=== PATIENT | female | born 1950 | race Caucasian/White ===

== ENCOUNTER 2016-11-13 07:13 | Day surgery (SDC) | payer MEDICARE, OTHER ==
[~2016-11-13] VITALS: Ht 160 cm; Wt 104.3 kg
[~2016-11-13 07:13] MED LIST: ATEN25TA PO; ATOR20TA PO; CITA40TA13 PO; GABA-504 PO; HYDR-3740 PO; LISI10TA PO; Lactated Ringer's 1,000 ML IV ONE; METO10TA3 PO; MIRT30TA6 PO; NALO25TA PO; NPH,100V10 SUBQ; OXYB5TAB10 PO; RANI-426 PO; SOMA350 PO
[2016-11-13] MEDS ORDERED: Propofol 10,000 mCg/mL 20 mL Inj ONE ×2 (07:14)
[2016-11-13] MEDS ORDERED: Lidocaine PF 1% 30 mL Inj ONE ×2 (07:14)
[2016-11-13] MEDS ORDERED: Lactated Ringer's 1,000 ML IV SCH (07:47)
--- NOTE | 2016-11-13 07:47 | PCM.HPANE ---
Patient Data Date of Service: Nov 13, 2016 Surgeon Admitting Provider: Attending Provider:Ulises Dewitt MD Primary Care Physician:Crystal Todd DO Other Provider:Jam Fall Anesthesia Reason for Visit Constipation Ht/WT & BMI Body Mass Index Allergies Coded Allergies: TAPE (Verified Allergy, Severe, BLISTERING/PEELING PAPER OK, 03/02/16) clindamycin (Verified Allergy, Severe, SEVERE HIVES, 03/02/16) droperidol (Verified Allergy, Severe, AGITATION, 03/02/16) iodine (Verified Allergy, Severe, HIVES (CONTRAST DYE) EXTERNAL OK, 03/02) latex (Verified Allergy, Severe, BURNING/INFLAMMATION, 03/02/16) meperidine (Verified Allergy, Severe, N&V, 03/02/16) morphine (Verified Allergy, Severe, ITCHING, 03/02/16) Sulfa (Sulfonamide Antibiotics) (Verified Allergy, Unknown, Rash, 03/02/16) Past Anesthesia History Anesthesia History: Positive for:: Anesthesia Reactions (UNABLE TO BREATHE AFTER & NEEDED REINTUBATION-PT AWAKE) Diabetes History Hx Diabetes?: Yes (blood sugar at home 179, took 15units NPH at 0530) MRSA MRSA: No Medications Reported Medications Ranitidine 75 Mg Yveqhy39 Mg PO BID 11/12/16 Oxybutynin Chloride 5 Mg Lpmxqe23 Mg PO DAILY Ref 0 11/12/16 NPH, Human Insulin Isophane (Novolin-N U100 Insulin Vial)100 Unit/1 Ml Vial55 Unit SUBQ BID #1 VIAL Ref 0 11/12/16 Naloxegol Oxalate (Movantik)25 Mg Qvqeva48 Mg PO DAILY 11/12/16 Mirtazapine 30 Mg Orihtb67 Mg PO HS Ref 0 11/12/16 Metoclopramide 10 Mg Fidskc81 Mg PO QID PRN For Nausea Ref 0 11/12/16 Lisinopril 10 Mg Tjyfrd67 Mg PO DAILY 30 Days Ref 0 11/12/16 Hydrocodone-Acetaminophen 10-325 mg 1 Each Tablet1 Tablet PO Q6H PRN For Pain Ref 0 11/12/16 Gabapentin 400 Mg Uxbwcxf363 Mg PO TID Ref 0 11/12/16 Citalopram 40 Mg Yfyrja61 Mg PO DAILY 30 Days Ref 0 11/12/16 Carisoprodol 350 Mg Xdcnck463 Mg PO TID PRN UNKNOWN 11/12/16 Atorvastatin (Lipitor)20 Mg Mvlvho45 Mg PO DAILY Ref 0 11/12/16 Atenolol 25 Mg Moezyx42 Mg PO DAILY #30 TABLET Ref 0 11/12/16 Discontinued Reported Medications Lactobacillus Combination No.4 (Probiotic)1 Each Capsule1 Each PO 03/02/16 Oxycodone (Roxicodone)15 Mg Abzxvo87 Mg PO Q6H PRN For Pain Ref 0 03/02/16 Mirtazapine-Expunged Drug, Do Not Renew! (Remeron-Expunged Drug, Do Not Renew!) 45 Mg Bsoaxj45 Mg PO HS 10/02/11 Citalopram-Expunged Drug, Do Not Renew! 40 Mg Uvudmb56 Mg PO DAILY 10/02/11 Simvastatin-Expunged Drug, Choose New Med! 40 Mg Qbyyfa04 Mg PO DAILY 10/02/11 Omeprazole-Expunged Drug, Do Not Renew! 40 Mg Capsule.dr40 Mg PO DAILY 2 caps 10/02/11 Lorazepam-Expunged Drug, Do Not Renew! 1 Mg Tab1 Mg PO Q6 PRN 10/02/11 Hydrocod/APAP-Expunged, Do Not Renew! (Hydrocod/APAP 7.5/300-Expunged, Do Not Renew!)1 Each Tablet1-2 Each PO Q6 10/02/11 Atenolol-Expunged Drug, Do Not Renew! 25 Mg Cgjnjh76 Mg PO BID 10/02/11 Insulin Lispro-Expunged Drug, Do Not Renew! (Humalog-Expunged Drug, Do Not Renew !)100 U/Ml Vial Sq SLIDING SCALE 10/02/11 INSULIN NPH-Expunged Drug, Do Not Renew! (Humulin N-Expunged Drug, Do Not Renew! )100 Unit/Ml Unit50 Unit SUBQ BID 10/02/11 Discontinued Scripts Polyethylene Glycol 3350 (Miralax)17 Gm Powd.pack17 Gm PO DAILY 14 Days Prov:Rush Ward 03/02/16 History History of ENT Problems?: Yes HEENT History: Positive for:: Dysphagia (swallowing problems) Sinus Problem TMJ Hx of Heart Problems?: Yes Cardiovascular History: Positive for:: Hypertension (HYPERLIPIDEMIA) Hx of Respiratory Problem?: Yes Respiratory History: Positive for:: Dyspnea Hx Neurologic Problems?: Yes Neurological History: Positive for:: Headaches Hx of GI Problems?: Yes Gastrointestinal History: Positive for:: Diverticulitis (diverticulosis) Gastroesphageal Reflux Heartburn Hiatal Hernia Hx of Problems?: Yes Genitourinary History: Positive for:: Kidney Stones Female Hx: Denies:: Currently Problems with Breasts? (S/P BREAST REDUCTION) Skin History: Denies:: History Skin Disorders? Hx Musculoskeletal Problems?: Yes Musculoskeletal History: Positive for:: Back Injury (and neck) Hx of Psycho/Social Problems?: Yes Psycho Social History: Positive for:: Anxiety Hx Depression Hx Surgeries?: Yes (Exp lap, bladder sling, breast reduction,hyster,Rt kidney stone,CTR,BTL) Hx Any Other Health Problems?: Yes Other History: Denies:: Cancer Endocrine Disease Hospitalization Thyroid Disease History Blood Transfusions: Positive for:: Blood Transfusions Denies:: Blood Transfuse Reaction Hx Diabetes: Yes (blood sugar at home 179, took 15units NPH at 0530) Hx Alcohol Use: NoHx Substance Use: NoHave You Smoked inLast 12 mo: No Stop/Bang Treated for Sleep Apnea?: No Do You Have a CPAP Machine?: No S-Snoring: Do You Snore Loudly: Yes T-Tired: feel tired, fatigued: Yes O-Obsered: Observed not breath: Yes P-Blood Pressure: treated: Yes B- Body Mass Index > 35 kg/m2: Yes A- Age over 50: Yes N- Neck Large Circumference: Yes AURA Risk Assessment: High Risk, =/>3 Yes Risk Assessment Category Category 1A: Patient has history of documented sleep apnea, and HAS NOT received any narcotic, sedative or anesthesia administration during this stay. Category 1B: Patient has history of documented sleep apnea, and HAS received any narcotic , sedative or anesthesia administration during this stay Category 2: Patient has SUSPECTED Obstructive Sleep Apnea, and HAS received any narcotic , sedative or anesthesia administration during this stay. Category 3: Patient has SUSPECTED Obstructive Sleep Apnea and HAS NOT received narcotic, sedative or anesthesia administration during this stay. Category 4: Outpatient in Procedural Areas with known sleep apnea or who screen positive for High Risk via the STOP/BANG questionnaire. Exam Exam HEENT/AIRWAY: MP 3, Neck Movement (Thick), Mouth Opening (Wide) Lungs: Clear to Auscultation, Normal Air Movement Heart: Regular Rate/Rhythm, Normal S1, Normal S2 Plan Impression Patient chart reviewed, patient interviewed and anesthestic plan with risks, benefits, and alternatives discussed, and informed consent obtained. NPO Status: > 8 hours ASA Physical Status: ASA3 Severe Disease Anesthetic Plan: MAC Bene/Risks/Altern/Consents: Yes HP Complete Prior to Induction: Yes Carlo Le MD Nov 13, 2016 07:47
[2016-11-13] MEDS ORDERED: Ondansetron 2 mg/mL 2 mL Inj IVPUSH PRN (07:50)
[2016-11-13] MEDS ORDERED: MetoCLOpramide 5 mg/mL 2 mL Inj IVPUSH PRN (07:50)
[2016-11-13] MEDS ORDERED: Atropine 0.4 mg/mL Inj IVPUSH PRN (07:50)
[2016-11-13 08:00] VITALS: BP 150/85; PULSE 110; RESP 14; O2SAT 96
[2016-11-13] MEDS ORDERED: INSU100V27 SQ (08:10)
[2016-11-13] MEDS ORDERED: NPH,100V10 SUBQ (08:10)
[2016-11-13 08:46] VITALS: BP 121/56; PULSE 94; RESP 14; O2SAT 95
--- NOTE | 2016-11-13 08:48 | PCM.ENDCOL ---
Colonoscopy Date of Service: Nov 13, 2016 Physician Ulises Dewitt MD Pre Procedure Diagnosis: Screening and constipation and personal history of polyps Post Procedure Dx & Findings: Polyp Fair Prep hemorrhoids Procedure Colonoscopy PROCEDURE IN DETAIL: Prep fair Withdrawal time 21 minutes After unremarkable rectal examination the Olympus video colonoscope was inserted patient's anal canal and was advanced to cecum. Landmarks were identified including the ileocecal valve and appendiceal orifice. Scope was withdrawn systematically. Visualized colonic mucosa showed healthy shiny mucosa with normal healthy-appearing vasculature. I spent quite a bit of time cleaning the colon. Significant amount of seeds were noted and plugged the scope on several occasions. In the ascending colon there was a 3 mm polyp which was removed completely using cold snare. In the transverse colon there was a 2 mm polyp which was removed completely using cold snare. In the sigmoid colon there was a 1 cm flat polyp which was removed completely using hot snare. In the rectum retroflexion was done which showed hemorrhoids. Anal canal was inspected carefully on the way out and hemorrhoids noted. Impression Polyps 3 status post complete removal. Largest one 1 cm Fair prep Hemorrhoids Recommendation Repeat colonoscopy 2 years with low residual diet for 2 weeks Presedation Assessment Risks and Benefits Informed consent was obtained from the patient after all risks and benefits including but not limited to drug reaction, infection, pain, bleeding, perforation, as well as alternatives were discussed. Patient monitoring Continuous pulse oximetry, cardiac monitoring, blood pressure monitoring, IV access, and oxygen at 2L per nasal cannula. Complications There were no periprocedural complications identified. Post Procedure Plan Post Procedure Recommendations 1. Restrict activities today. 2. Resume normal activities in the morning. 3. Resume medications. 4. Patient informed of normal post procedure side effects as bloating, drowsiness, blood streaking in the stool. 5. average risk CRCS. If colon polyps come back as: -Hyperplastic- can repeat colonoscopy in 10 years -Tubular adenoma- repeat colonoscopy in 5 years -Tubulovillous/villous adenoma- repeat colonoscopy in 3 years -If any dysplasia- return to clinic as soon as possible 6. Please don't hesitate to call me with any questions. Ulises Dewitt MD Nov 13, 2016 08:47
--- NOTE | 2016-11-13 08:53 | PCM.ANEP1 ---
Post Anesthesia Phase 1 PACU Phase 1 Assessment Date of Service: Nov 13, 2016 Vital Signs Vital Signs Date Time Temp Pulse Resp B/P Pulse Ox O2 Delivery O2 Flow Rate FiO2 11/13/16 08:46 36 94 14 121/56 95 Room Air 11/13/16 08:00 110 14 150/85 96 Room Air Anesthetic Administered: MAC Level of Alertness: Awake, talking BARRETO's with Equal Strength: Yes Pain: No Nausea or Vomiting: No Oxygen Delivery: Room Air Lungs: Normal Air Movement Carlo Le MD Nov 13, 2016 08:53
[2016-11-13 08:56] VITALS: BP 121/56; PULSE 87; RESP 16; O2SAT 97
[2016-11-13 09:06] VITALS: BP 121/73; PULSE 95; RESP 16; O2SAT 97
--- NOTE | 2016-11-13 09:37 | PCM.ANEP2 ---
Post Anesthesia Evaluation ASA/CMS Post Anesthesia Date of Service: Nov 13, 2016 VS in Patient's Normal Range?: Yes Resp Stable; Airway Patent?: Yes CV Function & Hydration Stable: Yes Mental Status Recovered?: Yes Pain control Satisfactory?: Yes N/V Control Satisfactory?: Yes Carlo Le MD Nov 13, 2016 09:37
--- NOTE | 2016-11-14 15:49 | PATH ---
SURGICAL PATHOLOGY Attending Physician:Ulises Dewitt M.D. CASE STATUS: Signed Out PATIENT NAME: MESSI STARK PID: [id number] : 1950 DATE COLLECTED:11/13/2016 18:12 SPECIMEN: 1: Colon, Biopsy 2: Colon, Biopsy 3: Colon, Biopsy CLINICAL HISTORY: 1). ASCENDING COLON POLYP X1 2). TRANSVERSE COLON POLYP X1 3). SIGMOID COLON POLYP X1 FINAL DIAGNOSIS: 1.ASCENDING COLON POLYP: TUBULAR ADENOMA. 2.TRANSVERSE COLON POLYP: TUBULAR ADENOMA. 3.SIGMOID COLON POLYP: HYPERPLASTIC POLYP. ICD10 CODE D12.2 GROSS DESCRIPTION: The specimen is received in three formalin filled containers labeled with the patient's name. 1). The specimen is sublabeled "ascending colon polyp x1" and consists of a 0.4 x 0.3 x 0.3 CM portion of tissue which is entirely submitted in cassette 1A. 2). The specimen is sublabeled "transverse colon polyp x1" and consists of a 0.3 x 0.2 x 0.2 CM portion of tissue which is entirely submitted in cassette 2A. 3). The specimen is sublabeled "sigmoid colon polyp x1" and consists of a 0.6 x 0.5 x 0.4 CM portion of tissue which is entirely submitted in cassette 3A. 11/13/2016 DAC MICRO DESCRIPTION: See diagnosis. ICD-9 CODES: CPT CODES: 1: 86187 2: 68838 3: 57373 Electronically Signed Out Michele Galaviz MD [facility] [address], [place] [address] Technical component performed at [facility], [address] [place] [address] Ave[address], [place], [address]
== END 2016-11-13 23:59 | disposition home or self-care (01) ==
LOC: END 07:13
PROVIDERS: ATTEND Internal Medicine
DX: Z12.11 Encounter for screening for malignant neoplasm of colon (principal); D12.2 Benign neoplasm of ascending colon; D12.3 Benign neoplasm of transverse colon; D12.5 Benign neoplasm of sigmoid colon; K64.8 Other hemorrhoids; I10 Essential (primary) hypertension; E78.5 Hyperlipidemia, unspecified; E11.42 Type 2 diabetes mellitus with diabetic polyneuropathy; G89.4 Chronic pain syndrome; K59.09 Other constipation; Z79.4 Long term (current) use of insulin; Z98.84 Bariatric surgery status
CPT/HCPCS: 45385; J7120

== ENCOUNTER 2016-12-06 12:52 | Inpatient (IN) | payer MEDICARE, OTHER ==
[~2016-12-06] VITALS: Ht 160 cm; Wt 112.8 kg
[~2016-12-06 12:52] MED LIST changes: +INSU100V27 SQ; -Lactated Ringer's 1,000 ML IV ONE; -METO10TA3 PO; -NALO25TA PO; -RANI-426 PO
[2016-12-06 13:18] VITALS: BP 149/78; PULSE 101; RESP 13; O2SAT 97
[2016-12-06] MEDS ORDERED: Ondansetron 2 mg/mL 2 mL Inj IVPUSH ONE (13:35)
[2016-12-06] MEDS ORDERED: 0.9% Sodium Chloride 1,000 ML IV ONE (13:35)
--- NOTE | 2016-12-06 13:47 | ED.REPORT ---
HPI-GI Bleed Date of Service Dec 06, 2016 ED Provider: Bill Garduno PA-C Essence is a 66-year-old female with a history of DM, hyperlipidemia who presents with a chief complaint of bloody diarrhea. She reports 2 episodes of watery diarrhea last night, associated with sweating and a sensation of presyncope. Since then she has had many episodes of small volume bright red blood per rectum. She also reports global abdominal "pressure" and "dark beige " urine. She states that she typically has gross hematuria on urinalysis due to history of kidney surgery. She has not had symptoms like this previously. Admits history of C. difficile colitis as well as a remote history of gastric bypass surgery and intussusception requiring surgery.. Denies recent antibiotic use, travel, unusual food, fever, vomiting, history of VT, CVA, TIA. Denies history of inflammatory bowel disease or cancer. Denies rectal pain or itching. She reports a colonoscopy 3 weeks ago and removal of 3 polyps. She was told it was a poor quality study due to retained fecal matter. She admits a history of low back pain with right leg radiculopathy that has been worsening over the last several weeks. Review of colonoscopy results indicate a fair quality study, 3 polyps removed largest one being 1 cm. Hemorrhoids are noted in the rectum, but not diverticula. Nursing Notes Stated Complaint: DIARRHEA Chief Complaint: Female Abdominal Pain Nursing Notes Reviewed: Yes Allergies: Coded Allergies: TAPE (Verified Allergy, Severe, BLISTERING/PEELING PAPER OK, 12/06/16) clindamycin (Verified Allergy, Severe, SEVERE HIVES, 12/06/16) droperidol (Verified Allergy, Severe, AGITATION, 12/06/16) iodine (Verified Allergy, Severe, HIVES (CONTRAST DYE) EXTERNAL OK, 12/06) latex (Verified Allergy, Severe, BURNING/INFLAMMATION, 12/06/16) meperidine (Verified Allergy, Severe, N&V, 12/06/16) morphine (Verified Allergy, Severe, ITCHING, 12/06/16) Sulfa (Sulfonamide Antibiotics) (Verified Allergy, Unknown, Rash, 12/06/16) metformin (Verified Adverse Reaction, Unknown, ABD CRAMPS, 12/06/16) Scheduled Atenolol (Atenolol) 25 Mg Tablet 50 MG PO DAILY Atorvastatin (Lipitor) 20 Mg Tablet 20 MG PO DAILY Citalopram (Citalopram) 40 Mg Tablet 40 MG PO DAILY Gabapentin (Gabapentin) 400 Mg Capsule 400 MG PO TID Insulin Regular, Human (Novolin-R U100 Insulin Vial) 100 Unit/1 Ml Vial 0 SQ ONCE Lisinopril (Lisinopril) 10 Mg Tablet 10 MG PO DAILY Mirtazapine (Mirtazapine) 30 Mg Tablet 30 MG PO HS NPH, Human Insulin Isophane (Novolin-N U100 Insulin Vial) 100 Unit/1 Ml Vial 100 UNIT SUBQ ONCE Oxybutynin Chloride (Oxybutynin Chloride) 5 Mg Tablet 10 MG PO DAILY Scheduled PRN Carisoprodol (Carisoprodol) 350 Mg Tablet 350 MG PO TID PRN PRN UNKNOWN Hydrocodone-Acetaminophen 10-325 mg (Hydrocodone-Acetaminophen 10-325 mg) 1 Each Tablet 1 TABLET PO Q6H PRN PRN For Pain General Time Seen by Provider: 13:23 Chief Complaint Chief Complaint: Stool bright red blood Past Medical History Past Medical History Reports: Diabetes mellitus, Hyperlipidemia Past Surgical History intusseption repair Reports: Hysterectomy Smoking History Former Smoker Review of Systems Review of Systems Note: Negative unless stated otherwise in history of present illness Physical Exam General: Well appearing, well developed, obese, in moderate distress. Appears quite uncomfortable lying on the gurney. Head: Atraumatic, normocephalic. Eyes: No scleral icterus or injection. No discharge. Vision grossly intact. ENT: Voice clear, hearing grossly intact. Respiratory: Regular rate and rhythm. Breath sounds present, clear to auscultation and equal bilaterally. No respiratory distress. No increased work of breathing, speaks in complete sentences. Cardiovascular: Regular rate and rhythm, without murmur, gallop or rub. No pedal edema. Gastrointestinal: Abdomen flat and non-tender without guarding or rebound. Bowel sounds normoactive. Rectum: Small nonthrombosed external hemorrhoid at anterior aspect of anus. Sensation intact. Normal tone. No masses or tenderness in rectum. Small amount of bright red blood extracted. Guaiac positive. Skin: Warm and dry. Back: Normal to inspection. Neurological: Normal gait. Grossly nonfocal. Psychological: Alert and oriented. Speech appropriate, linear and logical. Behavior appropriate. Initial Vital Signs Vital Signs (First) Date Time Temp Pulse Resp B/P Pulse Ox O2 Delivery O2 Flow Rate FiO2 12/06/16 13:18 37.5 101 13 149/78 97 Room Air Initial VS: Vital signs abnormal (hypertensive) Interpretation & Diagnostics Lab Results Interpretation Result Diagram: 12/06/16 1405 12/06/16 1405 Test 12/06/16 14:00 12/06/16 14:05 Urine Color Yellow (YELLOW) Urine Appearance Clear (CLEAR,HAZY) Urine pH 5.5 (5.0-8.0) Urine Specific [place] 1.015 (1.003-1.035) Urine Protein Negativemg/dL (NEG,TRACE) Urine Glucose (UA) Negativemg/dL (NEGATIVE) Urine Ketones 40mg/dL (NEGATIVE) Urine Occult Blood Large (NEGATIVE) Urine Nitrite Positive (NEGATIVE) Urine Bilirubin Negative (NEGATIVE) Urine Urobilinogen Normalmg/dL (NORMAL) Urine Leukocyte Esterase Small (NEGATIVE) Urine RBC 11-50/hpf (0-2) Urine WBC 6-10/hpf (0-5) Urine Epithelial Cells Moderate/hpf (NONE-MOD) Urine Crystals None seen (NONE SEEN) Urine Bacteria Many/hpf (NONE-FEW) Urine Hyaline Casts None/lpf (NONE) Urine Granular Casts None seen (NONE SEEN) Urine Waxy Casts None seen (NONE SEEN) Urine Red Blood Cell Casts None seen (NONE SEEN) Urine White Blood Cell Casts None seen (NONE SEEN) Urine Mucus None seen (None Seen) Urine Trichomonas None seen (NONE SEEN) Urine Yeast None (NONE SEEN) Urinalysis Comment None Urine Culture Reflexed Indicated White Blood Count 14.0th/mm3 (3.8-10.1) Red Blood Count 5.23mil/mm3 (3.90-5.20) Hemoglobin 15.7g/dL (12.0-15.6) Hematocrit 46.9% (35.0-46.0) Mean Corpuscular Volume 89.7fL (81-100) Mean Corpuscular Hemoglobin 30.0pg (27.0-35.0) Mean Corpuscular Hemoglobin Concent 33.5% (32.0-37.0) Red Cell Distribution Width 13.0% (12.3-15.4) Platelet Count 176bil/L (150-400) Neutrophils (%) (Auto) 83.3% (40-74) Lymphocytes (%) (Auto) 12.0% (14-46) Monocytes (%) (Auto) 4.1% (4-12) Eosinophils (%) (Auto) 0.4% (0-5) Basophils (%) (Auto) 0.1% (0-3) Prothrombin Time 10.7sec (8.1-12.5) Prothromb Time International Ratio 1.00ratio Activated Partial Thromboplast Time 24.8sec (22.8-33.0) Sodium Level 134mEq/L (134-144) Potassium Level 4.3mEq/L (3.5-5.2) Chloride Level 98mEq/L (97-108) Carbon Dioxide Level 17mmol/L (18-29) Blood Urea Nitrogen 12mg/dL (8-27) Creatinine 0.59mg/dL (0.57-1.00) Estimat Glomerular Filtration Rate 146mL/min (>59) Glucose Level 240mg/dL (60-99) Lactic Acid Level 1.7mmol/L (0.4-2.0) Calcium Level 9.2mg/dL (8.5-10.1) Total Bilirubin 0.9mg/dL (0.0-1.2) Aspartate Amino Transf (AST/SGOT) 18U/L (0-50) Alanine Aminotransferase (ALT/SGPT) 25U/L (0-32) Alkaline Phosphatase 186U/L (25-165) Total Protein 7.1g/dL (6.4-8.4) Albumin 3.7g/dL (3.4-5.0) Lipase 10U/L (13-60) Hold García Top Tube Received (Received) Ketones Positive (Negative) X-Ray Chest Interpretation Chest Xray Interpretation: PROCEDURE: X-RAY CHEST ONE VIEW, PORTABLE ([id number]) INDICATIONS: cough IMPRESSION: No acute cardiopulmonary findings. Interpretation / Wet Read by: Interpret - Radiologist CT Abd / Pelvis Interpretation PROCEDURE: CT ABDOMEN AND PELVIS WITHOUT CONTRAST ([id number]) IMPRESSION: 1. Descending and sigmoid colitis. Ischemic, infectious, and inflammatory etiologies could all be considered in the differential. No perforation or abscess. Re-Eval/Medical Decision Med Decision/Clinical Course 56-year-old female with a history of diabetes managed with insulin presents with a chief complaint of diarrhea, bright red blood per rectum, abdominal "pressure" and right leg radiculopathy. Describes 2 episodes of watery diarrhea last night as well as ongoing bouts of small volume bright red blood per rectum. Physical examination reveals a globally tender abdomen with some localization to the right lower quadrant. Rectal exam reveals a nonthrombosed external hemorrhoid, no masses or tenderness in the rectum but produces a small amount of bright red blood. Patient is hemodynamically stable. CBC reveals a mild leukocytosis with left shift at 14 as well as mild polycythemia with a hemoglobin of 15.7 and hematocrit of 46.9. CMP reveals slightly low carbon dioxide 17, elevated glucose at 240 and elevated alkaline phosphatase at 186. Lipase is low at 10. Positive ketones. PT normal at 10.7, INR normal at 1.00 and a PTT normal at 24.8 Urinalysis significant for large occult blood, positive urine nitrate, small leukocyte esterase , urine RBC 11-50, urine WBC 6-10, urine epithelial cells moderate, urine bacteria many. Sent for culture. Discussed the case with Dr. Otero, who met with and examined the patient. Ordered abdominal CT without contrast due to contrast allergy. CT reveals evidence of colitis. Dr. Otero advises 5 mg Flagyl IV, 500 mg of levofloxacin IV and will seek admission. Consultation : Referral / Consult Name: August Doherty MD Consulted With: Hospitalist Note: Dr. Otero discussed the case with the hospitalist who met with and examined the patient. Excepts admission. Discharge & Departure Impression: Primary Impression: Colitis Disposition: ADMITTED TO HOSPITAL Referrals: Crystal Todd DO (PCP) EDSupervising Provider for APC: Michele Otero MD Attending Statement I personally examined this patient and agree with above. copies to: Crystal Todd Seth PA-C Dec 06, 2016 13:47 Michele Otreo MD Dec 06, 2016 23:30
[2016-12-06] MEDS: HYDROmorphone 0.5 mg/0.5 mL iSecure Syringe IVPUSH PRN ×4 (14:16→16:01)
[2016-12-06 14:21] LABS: BASOPHILS % (AUTO) 0.1 % (0-3); EOSINOPHILS % (AUTO) 0.4 % (0-5); MONOCYTES % (AUTO) 4.1 % (4-12); Mean Corpuscular Volume 89.7 fL (81-100); NEUTROPHILS % (AUTO) 83.3 % (40-74); Platelet Count 176 bil/L (150-400)
[2016-12-06 14:55] LABS: APPEARANCE,URINE CLEAR (CLEAR,HAZY); COLOR,URINE YELLOW (YELLOW)
[2016-12-06 14:56] LABS: OCCULT BLOOD,URINE LARGE (NEGATIVE); PH,URINE 5.5 (5.0-8.0); UROBILINOGEN,URINE NORMAL (NORMAL)
[2016-12-06 15:00] VITALS: BP 133/39; PULSE 95; RESP 21; O2SAT 98
--- NOTE | 2016-12-06 16:18 | DRSVH ---
PROCEDURE: X-RAY CHEST ONE VIEW, PORTABLE ([id number]) INDICATIONS: cough TECHNIQUE: One view of the chest was acquired. COMPARISON: None. FINDINGS: Surgical changes and devices: None. Lungs and pleura: No pleural effusions or pneumothorax. Lungs are clear. Mediastinum: Mediastinal contours appear normal. Heart size is normal. Bones and chest wall: No suspicious bony lesions. Overlying soft tissues appear unremarkable. IMPRESSION: No acute cardiopulmonary findings. Dictated by: Bell Pagan M.D. on 12/06/2016 at 16:16 Approved by: Bell Pagan M.D. on 12/06/2016 at 16:17
--- NOTE | 2016-12-06 16:55 | DRSVH ---
PROCEDURE: CT ABDOMEN AND PELVIS WITHOUT CONTRAST ([id number]) INDICATIONS: rlq abd tenderness TECHNIQUE: After the administration of oral contrast, 5 mm thick sections acquired from the diaphragms to the sy mphysis. 5 mm coronal and sagittal reformats were performed. For radiation dose reduction, the foll owing was used: automated exposure control, adjustment of mA and/or kV according to patient size. COMPARISON: None. FINDINGS: Image quality: Excellent. ABDOMEN: Lung bases: Lung bases are clear. Heart size is normal. There is mild basilar atelectasis. No pleu ral effusion or pneumothorax. Solid organs: The liver is diffusely hypodense suggesting hepatic steatosis. The spleen demonstrates normal size. Gallbladder is unremarkable. Pancreas is normal in size. No adrenal nodules. Both ki dneys are normal in size, without hydronephrosis or nephrolithiasis. Peritoneum and bowel: The stomach and small bowel demonstrate normal caliber and wall thickness. Alyssa ent is likely status post right hemicolectomy. The ascending and transverse colon demonstrate normal caliber and wall thickness. There is circumferential wall thickening of the descending and sigmoid co fredy. There is mild pericolonic fat stranding. No definite colonic diverticular outpouchings to sugges t diverticulitis. No free fluid or pneumoperitoneum. Nodes and vessels: No retroperitoneal or mesenteric adenopathy by size criteria. Aorta and inferior vena cava are normal in size. Miscellaneous: No ventral hernias. PELVIS: Genitourinary: Bladder wall thickness is normal. The uterus is surgically absent. Miscellaneous: No inguinal hernias or adenopathy. Bones: No suspicious bony lesions. Severe degenerative change throughout the lumbar spine. No verteb ral body compression fractures. IMPRESSION: 1. Descending and sigmoid colitis. Ischemic, infectious, and inflammatory etiologies could all be con sidered in the differential. No perforation or abscess. This finding was discussed with Dr. Otero at 8:51 PM on 12/06/16. Dictated by: Bell Pagan M.D. on 12/06/2016 at 16:44 Approved by: Bell Pagan M.D. on 12/06/2016 at 16:53
[2016-12-06] MEDS ORDERED: metroNIDAZOLE Inj 500 MG in IV Premix 1 EACH IV ONE (17:30)
[2016-12-06] MEDS ORDERED: HYDROmorphone 0.5 mg/0.5 mL iSecure Syringe IVPUSH PRN (17:30)
[2016-12-06] MEDS ORDERED: levoFLOXacin Inj 500 MG in IV Premix 1 EACH IV ONE (17:30)
[2016-12-06 17:57] VITALS: BP 133/47; PULSE 100; RESP 20; O2SAT 97
[2016-12-06] MEDS ORDERED: Alum-Mag Hydrox-Simeth 30 mL Suspension PO PRN (18:15)
[2016-12-06] MEDS ORDERED: Polyethylene Glycol (PEG) 17 Gm Powder PO PRN (18:15)
[2016-12-06] MEDS ORDERED: Ondansetron 2 mg/mL 2 mL Inj IVPUSH PRN (18:15)
[2016-12-06] MEDS: metroNIDAZOLE Inj 500 MG in IV Premix 1 EACH IV SCH ×2 (18:15→23:10)
--- NOTE | 2016-12-06 18:16 | PCM.HPMED ---
Subjective Date of Service Dec 06, 2016 Primary Provider: Admitting Physician: August Doherty MD Primary Care Physician: Crystal Todd DO Attending Physician: August Doherty MD Admit Status: From the Emergency Department, Remote Telemetry Chief Complaint: Bloody Diarrhea/1 day Abdominal pain/1 day History of Present Illness: 66-year-old lady with past medical history of diabetes on insulin, hypertension , obesity, chronic low back pain, peripheral neuropathy presented to the emergency room due to bloody diarrhea of one day. She developed an episode of explosive nonbloody diarrhea last night at 10 pm which was followed by frequent small bloody diarrhea episodes. She also has diffuse abdominal pain, dull aching which is worse than her chronic pain. She has nausea but no vomiting. Denies fever. She has mild chronic abdominal and low back pain. She had underwent workup for chronic abdominal pain and constipation which is unrevealing except colon polyps. She had a follow-up colonoscopy 4 weeks ago which revealed only polyps. Denies history of diarrhea. Denies recent history of antibiotic use. Denies history of atrial fibrillation. She has history of gastric bypass surgery in the 70s for obesity which was complicated by intussusception requiring exploratory laparotomy. ED course: HR 105, BP 149/70, afebrile, saturation 97% on room air. WBC 14, sodium 134, bicarbonate 17, anion gap 19, urine ketones positive, pyuria, lactate 1.7, creatinine 0.59, glucose 240 CT abdomen shows descending colitis. Flagyl and Levaquin started. 2 L of normal saline given. Admission requested for colitis. Review of Systems: Comprehensive review of systems performed. Pertinent positives and negative included in history of present illness Allergies Coded Allergies: TAPE (Verified Allergy, Severe, BLISTERING/PEELING PAPER OK, 12/06/16) clindamycin (Verified Allergy, Severe, SEVERE HIVES, 12/06/16) droperidol (Verified Allergy, Severe, AGITATION, 12/06/16) iodine (Verified Allergy, Severe, HIVES (CONTRAST DYE) EXTERNAL OK, 12/06) latex (Verified Allergy, Severe, BURNING/INFLAMMATION, 12/06/16) meperidine (Verified Allergy, Severe, N&V, 12/06/16) morphine (Verified Allergy, Severe, ITCHING, 12/06/16) Sulfa (Sulfonamide Antibiotics) (Verified Allergy, Unknown, Rash, 12/06/16) metformin (Verified Adverse Reaction, Unknown, ABD CRAMPS, 12/06/16) Home Medications Atenolol 50 mg by mouth daily Atorvastatin 20 mg by mouth daily Citalopram 40 mg daily Gabapentin 800 mg by mouth 3 times a day Novolin R sliding scale Novolin N NPH insulin 55 units in the morning and 50 units at bedtime Lisinopril 10 mg daily Mirtazapine 30 mg by mouth at bedtime Oxybutynin 5 mg by mouth daily PMH Diabetes insulin-dependent, insulin resistance per patient Hyperlipidemia Chronic abdominal pain Chronic lowback pain due to lumbar disc disease Surgical History Gastric bypass and stenting 70s for obesity complicated by intussusception requiring exploratory laparotomy, residual Suspected gastroparesis Bladder repair Hysterectomy Bilateral tubal ligation breast reduction surgery Family History father at 92 due to old age Mother at 66 due to adrenal gland bleeding Maternal grandmother had history of colon cancer, age at diagnosis unknown Social History Hx Alcohol Use: No Hx Substance Use: No Hx Tobacco Use: No Smoking Status: Former Smoker (used to smoke 2 pack a day for 30 years, quit 2 yrs ago) Exam Vital Signs Vital Sign - Last Date Time Temp Pulse Resp B/P Pulse Ox O2 Delivery O2 Flow Rate FiO2 12/06/16 17:57 100 20 133/47 97 12/06/16 15:00 Room Air 12/06/16 13:18 37.5 Exam Gen. Obese patient is lying comfortably in hospital bed HEENT: Head is normocephalic atraumatic, Pupils equal and reactive, extraocular movements intact, Lungs clear to auscultation bilaterally Heart regular rate and rhythm without murmurs gallops or rubs Abdomen mild diffuse tenderness on lower abdomen bilaterally, active bowel sounds Extremities pulses are present dorsalis pedis posterior tibialis and radial. tSkin is warm and dry there are no rashes, Psych alert and oriented to person place and time Neuro cranial nerves II through XII are grossly intact Lymph: There is no lymphadenopathy appreciated in the cervical supra infraclavicular regions : no trejo Lab and Diagnostics Result Diagram: 12/06/16 1405 12/06/16 1405 X-Rays, CTs and MRIs PROCEDURE: CT ABDOMEN AND PELVIS WITHOUT CONTRAST ([id number]) INDICATIONS: rlq abd tenderness TECHNIQUE: After the administration of oral contrast, 5 mm thick sections acquired from the diaphragms to the symphysis. 5 mm coronal and sagittal reformats were performed. For radiation dose reduction, the following was used: automated exposure control, adjustment of mA and/or kV according to patient size. COMPARISON: None. FINDINGS: Image quality: Excellent. ABDOMEN: Lung bases: Lung bases are clear. Heart size is normal. There is mild basilar atelectasis. No pleural effusion or pneumothorax. Solid organs: The liver is diffusely hypodense suggesting hepatic steatosis. The spleen demonstrates normal size. Gallbladder is unremarkable. Pancreas is normal in size. No adrenal nodules. Both kidneys are normal in size, without hydronephrosis or nephrolithiasis. Peritoneum and bowel: The stomach and small bowel demonstrate normal caliber and wall thickness. Patient is likely status post right hemicolectomy. The ascending and transverse colon demonstrate normal caliber and wall thickness. There is circumferential wall thickening of the descending and sigmoid colon. There is mild pericolonic fat stranding. No definite colonic diverticular outpouchings to suggest diverticulitis. No free fluid or pneumoperitoneum. Nodes and vessels: No retroperitoneal or mesenteric adenopathy by size criteria. Aorta and inferior vena cava are normal in size. Miscellaneous: No ventral hernias. PELVIS: Genitourinary: Bladder wall thickness is normal. The uterus is surgically absent. Miscellaneous: No inguinal hernias or adenopathy. Bones: No suspicious bony lesions. Severe degenerative change throughout the lumbar spine. No vertebral body compression fractures. IMPRESSION: 1. Descending and sigmoid colitis. Ischemic, infectious, and inflammatory etiologies could all be considered in the differential. No perforation or abscess. This finding was discussed with Dr. Otero at 8:51 PM on 12/06/16. Dictated by: Bell Pagan M.D. on 12/06/2016 at 16:44 12-lead ECG Pending Assessment & Plan 66-year-old lady with past medical history of diabetes on insulin, hypertension , obesity, chronic low back pain, peripheral neuropathy presented to the emergency room due to bloody diarrhea of one day # Acute descending colitis,poa -Likely infectious given the elevated white count -stool PCR pending -Continue Levaquin and Flagyl -C. difficile requested -Ischemic colitis unlikely given normal lactate and no major risk factors like atrial fibrillation -2 L NS in ED,c/w 100ml/h -CT consistent with descending colitis -blood cx pending # Metabolic acidosis, acute, poa -Initial anion gap 19, lactic negative -Likely due to dehydration, urinary ketones positive. Possible early DKA. Will continue home insulin and follow acidosis closely -IV fluids as above # suspected UTI -levaquin -ucx pending # Diabetes, chronic -Continue NPH insulin 55 in the morning and 50 units at bedtime -Sliding-scale high correction #Hypertension -Continue atenolol, hold lisinopril #lower GI bleeding due to colitis #HLD, continue home statin #Peripheral neuropathy, continue home gabapentin #no dvt ppx due to gi bleed full code ,verified with patient Patient admitted under inpatient status with expected length of stay > 2 midnights for severity of present symptoms, complexities of treatment plan and risk for adverse events Time spent 50 minutes copies to: Crystal Todd Melaku MD Dec 06, 2016 18:16
[2016-12-06 18:28] VITALS: BP 133/47; PULSE 100; RESP 20; O2SAT 97
[2016-12-06 18:35] VITALS: BP 152/61; PULSE 105; RESP 20; O2SAT 98
--- NOTE | 2016-12-06 18:35 | NUR ---
Admit Pt [place] [facility] [place] at 1835. Pt placed on tele. IV abx running. Pt able to transfer to bed from stretcher SBA. Pt rates pain 8/10 in hip and left leg. Pain medication given in ED. Waiting for cnc machinist 2nd shift RN to finish admit. Care continues. Addendum: 12/06/16 at 1933 by ADRIAN GREGG RN Pt has uncontrolled pain and doesn't want to take [place]. States that it will not help. Pt had BM that is johann red blood. MD rothman. cnc machinist 2nd shift RN aware.
[2016-12-06] MEDS ORDERED: Glucose 40% Oral Gel 15 Gm Tube PO PRN (18:50)
[2016-12-06] MEDS: 0.9% Sodium Chloride 1,000 ML IV SCH (19:00)
[2016-12-06 20:20] VITALS: BP 105/67; PULSE 96; RESP 20; O2SAT 95
[2016-12-06] MEDS: HYDROmorphone 1 mg/mL Inj IVPUSH PRN ×2 (20:33→23:17)
[2016-12-06] MEDS: Insulin Human NPH 100 Unit/mL 3 mL Inj SUBQ SCH (20:39)
[2016-12-06] MEDS: Insulin LISPRO 300 Unit/3 mL Inj SUBQ SCH (23:04)
[2016-12-07] VITALS (15 sets, daily range): BP systolic 104–158; BP diastolic 59–76; PULSE 67–101; RESP 16–20; O2SAT 84–99
[2016-12-07] MEDS: HYDROcodone-APAP 10-325 mg PO PRN ×2 (00:17→05:48)
[2016-12-07] MEDS: HYDROmorphone 1 mg/mL Inj IVPUSH PRN ×2 (02:32→05:46)
[2016-12-07] MEDS: 0.9% Sodium Chloride 1,000 ML IV SCH ×2 (05:46→17:30)
[2016-12-07] MEDS ORDERED: MetoCLOpramide 5 mg/mL 2 mL Inj IVPUSH PRN (06:05)
[2016-12-07] MEDS: HYDROmorphone PCA 0.2 mg/mL 30 mL Inj IV PRN ×2 (06:44→13:45)
--- NOTE | 2016-12-07 07:24 | NUR ---
MD Notified MD notified of uncontrolled pain and given orders for dilauded 1mg PRN Q3h are received, changed to PRESCHOOL PROGRAM DIRECTOR in AM due to continued lack of pain control. Vicodin and muscle relaxant are given PRN in addition and somewhat manage breakthrough pain. MD also aware of johann red blood BM, no changes made. Pt states pain in R leg responds less to dilauded than abdominal pain. On tele and Cpox, pt denies SOB and chest pain, no n/v. Care continues
[2016-12-07] MEDS: Insulin LISPRO 300 Unit/3 mL Inj SUBQ SCH ×4 (08:00→21:23)
[2016-12-07 08:29] LABS: BASOPHILS % (AUTO) 0.1 % (0-3); EOSINOPHILS % (AUTO) 0.6 % (0-5); MONOCYTES % (AUTO) 5.3 % (4-12); Mean Corpuscular Hemoglobin 30.3 pg (27.0-35.0); Mean Corpuscular Volume 90.6 fL (81-100); NEUTROPHILS % (AUTO) 77.8 % (40-74); Platelet Count 130 bil/L (150-400)
[2016-12-07] MEDS: Insulin Human NPH 100 Unit/mL 3 mL Inj SUBQ SCH ×2 (08:30→20:30)
[2016-12-07] MEDS: metroNIDAZOLE Inj 500 MG in IV Premix 1 EACH IV SCH ×2 (09:33→21:56)
[2016-12-07] MEDS: levoFLOXacin Inj 500 MG in IV Premix 1 EACH IV SCH (11:13)
--- NOTE | 2016-12-07 13:48 | NUR ---
Social Work: Initial Assessment Attempt Practicing Md Anesthesiologist attempted to complete initial assessment, but patient had visitors and requested that the social organization professor leave and come back at another time. Practicing Md Anesthesiologist will attempt to complete assessment at another time. SW will continue to follow and assist patient. Melissa Saldivar LMSW, FREDI
--- NOTE | 2016-12-07 14:08 | DRSVH ---
PROCEDURE: X-RAY PELVIS W/LAT HIP (RT) ([id number]) INDICATIONS: fall with right leg and hip pain TECHNIQUE: AP pelvis with lateral view(s) of the right hip(s). COMPARISON: [facility], CT, CT [facility] 2VW RT, 12/07/2016, 11:32. FINDINGS: Bones: No fractures or dislocations. Pelvic ring appears intact. No suspicious bony lesions. Soft tissues: The visualized bowel gas pattern is normal. No suspicious soft tissue calcifications. There are surgical clips and sutures in the right lower quadrant. IMPRESSION: No fracture or dislocation. If clinical symptoms persist or clinical suspicion for patho logy is high, a repeat examination in 7-10 days, or advanced imaging such as CT or MRI is suggested f or further evaluation. Dictated by: Nathalia Posadas M.D. on 12/07/2016 at 14:04 Approved by: Nathalia Posadas M.D. on 12/07/2016 at 14:07
--- NOTE | 2016-12-07 14:10 | DRSVH ---
PROCEDURE: X-RAY RIGHT FEMUR, TWO VIEWS ([id number]) INDICATIONS: fall with right leg and hip pain TECHNIQUE: 2 views of the femur were acquired. COMPARISON: None. FINDINGS: Bones: No fractures or dislocations. No suspicious bony lesions. There is mild/moderate tricompart mental joint degeneration. Soft tissues: No suspicious soft tissue calcifications or masses. There are soft tissue calcificati ons in the distal right thigh laterally. IMPRESSION: 1. No fracture or dislocation. 2. Mild/moderate knee joint degeneration. 3. Soft tissue calcifications. Dictated by: Nathalia Posadas M.D. on 12/07/2016 at 14:07 Approved by: Nathalia Posadas M.D. on 12/07/2016 at 14:08
--- NOTE | 2016-12-07 14:26 | PCM.PNMED ---
Subjective Date of Service Dec 07, 2016 Subjective Patient was seen and examined at bedside today. Patient denies any chest pain, shortness of breath, nausea, vomiting, diarrhea. Patient does report abdominal pain and right lower extremity pain. Patient attributes the right lower extreme pain to a recent fall. Patient still complains of bloody stools. Overnight events: None Exam Vital Signs Vital Sign - Last Date Time Temp Pulse Resp B/P Pulse Ox O2 Delivery O2 Flow Rate FiO2 12/07/16 12:03 36.4 74 17 106/68 90 Room Air Intake and Output 12/06/16 12/06/16 12/07/16 Cumulative From/Thru 14:59 22:59 06:59 12/06/16 13:21 - 12/06/16 15:57 Intake Total 1000 ml 1000 ml Balance 1000 ml 1000 ml IV Total 1000 ml 1000 ml Exam Physical Exam: GEN: Patient was awake, alert, responding appropriately to questions, mild distress HEENT: Pupils equal round and reactive to light, extraocular eye muscles intact , Neck soft supple, trachea midline, nomocephalic/atraumatic CV: +S1/S2, regular rate and rhythm, no murmurs auscultated Respiratory: CTAB, no wheezes, rales, rhonchi GI: +bowel sounds x4, soft, compressible, nontender to palpation Muscular skeletal: Right lower extremity pain with movement and palpation of the IT band insertion of the psoas muscle. EXT: no clubbing, cyanosis, edema Neuro: Cranial nerves II-XII grossly intact Psych: mood and affect were anxious IVs and Medications Medications Reviewed: Medications were reviewed in detail Lab and Diagnostics Result Diagram: 12/07/1681912/07/16 0820 X-Rays, CTs and MRIs PROCEDURE: CT ABDOMEN AND PELVIS WITHOUT CONTRAST ([id number]) INDICATIONS: rlq abd tenderness TECHNIQUE: After the administration of oral contrast, 5 mm thick sections acquired from the diaphragms to the symphysis. 5 mm coronal and sagittal reformats were performed. For radiation dose reduction, the following was used: automated exposure control, adjustment of mA and/or kV according to patient size. COMPARISON: None. FINDINGS: Image quality: Excellent. ABDOMEN: Lung bases: Lung bases are clear. Heart size is normal. There is mild basilar atelectasis. No pleural effusion or pneumothorax. Solid organs: The liver is diffusely hypodense suggesting hepatic steatosis. The spleen demonstrates normal size. Gallbladder is unremarkable. Pancreas is normal in size. No adrenal nodules. Both kidneys are normal in size, without hydronephrosis or nephrolithiasis. Peritoneum and bowel: The stomach and small bowel demonstrate normal caliber and wall thickness. Patient is likely status post right hemicolectomy. The ascending and transverse colon demonstrate normal caliber and wall thickness. There is circumferential wall thickening of the descending and sigmoid colon. There is mild pericolonic fat stranding. No definite colonic diverticular outpouchings to suggest diverticulitis. No free fluid or pneumoperitoneum. Nodes and vessels: No retroperitoneal or mesenteric adenopathy by size criteria. Aorta and inferior vena cava are normal in size. Miscellaneous: No ventral hernias. PELVIS: Genitourinary: Bladder wall thickness is normal. The uterus is surgically absent. Miscellaneous: No inguinal hernias or adenopathy. Bones: No suspicious bony lesions. Severe degenerative change throughout the lumbar spine. No vertebral body compression fractures. IMPRESSION: 1. Descending and sigmoid colitis. Ischemic, infectious, and inflammatory etiologies could all be considered in the differential. No perforation or abscess. This finding was discussed with Dr. Otero at 8:51 PM on 12/06/16. Dictated by: Bell Pagan M.D. on 12/06/2016 at 16:44 12-lead ECG Pending Assessment & Plan 66-year-old lady with past medical history of diabetes on insulin, hypertension , obesity, chronic low back pain, peripheral neuropathy presented to the emergency room due to bloody diarrhea of one day Acute descending colitis,poa -Likely infectious given the elevated white count -Stool PCR negative -Continue Levaquin and Flagyl -C. difficile negative - Continue IV fluids -Continue nothing by mouth -CT consistent with descending colitis -Blood cx pending -GI consulted and currently following Right lower extremity pain status post fall yesterday prior to admission -Rule out fracture, follow-up AP pelvis and right lower extremity x-ray -Increased patient's gabapentin back to her home dose of 800 mg 3 times a day Metabolic acidosis, acute, poa -Initial anion gap 19, lactic negative current anion gap is trending downward currently 14 -Less likely early DKA as patient's glucose has decreased to 161 -Continue IV fluids Suspected UTI -Preliminary urine culture suggests gram-negative rods - Continue Levaquin Diabetes, chronic -Continue NPH insulin 55 in the morning and 50 units at bedtime -Sliding-scale high correction Hypertension -Currently controlled blood pressure is 106/68 -Continue atenolol, hold lisinopril Lower GI bleeding due to colitis -GI following HLD currently stable -Continue home statin Peripheral neuropathy, -Continue home dose of gabapentin 800 mg 3 times a day No dvt ppx due to gi bleed Full code Disposition: Patient is still in a significant amount of pain. Patient will continue to be nothing by mouth at this time. I discussed the case with Dr. Dewitt (GI) who stated that the patient refused a colonoscopy at this time. Dr. Dewitt does recommend endoscopy however the patient would like to first see if her symptoms resolve with antibiotic therapy prior to which is pitting and endoscopy. We will continue to monitor the patient and treat accordingly. Resuscitation Status: CPR: Attempt Resuscitation Ashlee Greene DO Dec 07, 2016 14:25
--- NOTE | 2016-12-07 15:55 | CONS ---
[address] [address] CONSULTATION REPORT PATIENT: MESSI STARK : 1950 MR#: [id number] ADMIT: 12/06/2016 JOB ID: [id number] DATE OF SERVICE: 12/07/2016 SOURCE OF CONSULTATION: It was a pleasure seeing the patient at [facility] for evaluation of colitis. This is a 66-year-old lady who has history of diabetes, chronic back pain, peripheral neuropathy, high blood pressure, who also has underlying constipation with abdominal surgeries. Comes in with abdominal pain and diarrhea. She had a colonoscopy on November 13 for worsening constipation. Found three polyps and most came back as a tubular adenoma. However, she still has issues with constipation. Then, Thursday evening, she had some salads and within half an hour she started having explosive diarrhea. She said she did not eat anything on Thursday because of the pain that she was having in her back and her legs. She drank some tea but she had a poor appetite. Then, she started having watery diarrhea after she was eating. The watery diarrhea quickly turned to bloody and she started having diffuse abdominal pain, described as a dullness, aching type which was worse than her chronic pain that she has. She did not have any vomiting but had nausea. The episodes caused her to have more bowel movement and when she went to have a bowel movement, she started seeing fresh blood coming out of her rectum. This continued throughout the day yesterday and she came in last night. In terms of the frequency of the episodes, it has decreased. The last time she had a bloody stool, she thinks it is smaller in amount and probably last night. She has not any had anything this morning. Frequency is decreasing and amount of stool output is decreasing as well. She says her abdominal pain is better. Currently, she says she does feel somewhat hungry, some nausea but no vomiting. She denied any fever, chills, headaches, blurred vision, dizziness, lightheadedness, chest pain, shortness of breath. No melena noted. She is usually constipated and she has issues with constipation as a baseline. She had a CT scan done in the emergency department which showed descending and sigmoid colitis. There is some mild pericolonic fat stranding as well. PAST MEDICAL HISTORY: Includes diabetes, high cholesterol, chronic abdominal pain, chronic back pain. PAST SURGICAL HISTORY: Gastric bypass as well as complicated by intussusception requiring exploratory laparoscopy with suspected gastroparesis, bladder repair, hysterectomy, bilateral tubal ligation, breast reduction surgery. Her maternal grandmother had colon cancer. SOCIAL HISTORY: Denies history of alcohol, tobacco, or drugs. PHYSICAL EXAMINATION: Vital signs include temp of 36.6, T-max 36.9, pulse 82, respirations 17, blood pressure 152/76. Head and neck: No icterus, obese neck. Lungs clear. Cardiovascular: Regular rate and rhythm with normal S1, S2. Abdomen soft. Left lower quadrant and left-sided moderate tenderness with minimal rebound. No guarding and no firmness. Active bowel sounds noted. Extremities: No pitting edema of the ankles. Skin shows no obvious jaundice. MEDICATION: Includes: 1. Flagyl. 2. Hydromorphone. 3. Tylenol. 4. Soma. 5. Insulin. 6. MOM. 7. Remeron. 8. Gabapentin. 9. Insulin. 10. Benadryl. 11. Naloxone. 12. Dextrose. 13. Celexa. 14. Ditropan. 15. Atorvastatin. 16. Atenolol. 17. Levaquin. 18. PEG. 19. Senna. 20. Zofran. LABORATORY DATA: White count went from 14,000 to 11,000. Hemoglobin 13.8, platelets 130,000. Coags: INR 1.0. Chemistry showing normal LFTs today with AST 16, ALT 20, alk phos 150. Albumin 3.2, total bili 5.7, BUN 7, creatinine 0.48. CT scan as above. IMPRESSION: This is a 66-year-old lady with underlying colitis with bloody diarrhea. A colonoscopy was apparently done on November 13, which showed some polyps but the prep was not ideal. Currently she is hemodynamically stable. Etiology includes ischemic versus infectious colitis versus toxin from infection. Patient is on Levaquin and Flagyl. This should cover for potential infection or ischemia. C. difficile is less likely. However, would recommend obtain a C. difficile stool sample. This is because after all, she was in the hospital getting a colonoscopy. Would keep the patient n.p.o. To have a definitive diagnosis, we would have to do a colonoscopy, but I have explained to her under these circumstances there is a slight increase in risk of perforation if this is indeed ischemic. After discussing risks and benefits, she would like medical therapy only. She declined to proceed with colonoscopy. It appears that things are getting better compared to how it was yesterday. Typically left-sided ischemic colitis has very good prognosis. Recommendation: Would support her with aggressive hydration. Will follow. Continue antibiotics CC: Primary care doctor and hospitalist PRECIOUS
--- NOTE | 2016-12-07 18:31 | NUR ---
Activity/pain Pt up to Bathroom SBA, Abdominal pain and Leg pain tolerably controlled with RETAIL ROUTE SUPERVISOR Dilaudid, Gabapentin dose increased this afternoon for leg pain. x-rays done on right leg and pelvis. pt made NPO for bowel rest. no stool or blood from rectum this shift. continuing to monitor closely
[2016-12-08] VITALS (16 sets, daily range): BP systolic 140–180; BP diastolic 72–94; PULSE 67–81; RESP 15–21; O2SAT 90–98
[2016-12-08] MEDS: HYDROmorphone PCA 0.2 mg/mL 30 mL Inj IV PRN ×3 (01:20→15:08)
[2016-12-08] MEDS: 0.9% Sodium Chloride 1,000 ML IV SCH ×3 (03:48→23:50)
[2016-12-08 05:41] LABS: BASOPHILS % (AUTO) 0.2 % (0-3); EOSINOPHILS % (AUTO) 1.6 % (0-5); MONOCYTES % (AUTO) 5.8 % (4-12); Mean Corpuscular Hemoglobin 29.6 pg (27.0-35.0); NEUTROPHILS % (AUTO) 71.2 % (40-74); Platelet Count 149 bil/L (150-400)
--- NOTE | 2016-12-08 06:10 | NUR ---
Activity Pt alert and oriented x4, uses INSOLE PRESSER for pain relief. Complained of feeling constipated, small amount of BM 5ml and blood . Sent stool culture to lab. Pt remained in room for the shift, walked to bathroom with SBA. Left room with call light in hand. Paged night Dr with info.
[2016-12-08] MEDS: Insulin Human NPH 100 Unit/mL 3 mL Inj SUBQ SCH ×2 (08:30→20:30)
--- NOTE | 2016-12-08 09:24 | NUR ---
Social Work- Initial Assessment: Data & Assessment: See Initial Assessment. EMR reviewed. Patient is a 66 y/o female that admitted on 12/06 for colitis per H&P. SW met with patient at bedside to complete initial assessment, discuss discharge planning and SW role explained. Patient was alert and oriented x3. Patient ANGELICA is her sister Jocelyne Andino [phone]. Patient does not have a Advance Directive/DPOA. SW provided patient with Advance Directive/DPOA paperwork. Patient confirmed that her PCP is Dr. Crystal Todd and insurance is Medicare and [employer] Supplement. Patient does not have VA or LTC insurance. Patient re-admit score is 4 high risk. Patient lives at home alone in a single level home where she is independent with ADL's. Patient's home has three steps to enter. Patient uses a rollator at baseline and does drive. Patient has no HH and no SNF history. Patient states that she can discharge home with her sister or daughter if needed upon discharge. Patient does not have a preference for HH if it is needed when discharged. SW contact information written on patient's white board. SW will continue to follow and assist patient throughout stay. Plan: Patient will discharge home with family and HH vs. Home with family and no needs. SW will continue to follow and assist patient throughout stay. Melissa Saldivar, YUNIER, ACM
[2016-12-08] MEDS: Insulin LISPRO 300 Unit/3 mL Inj SUBQ SCH ×4 (09:34→22:00)
[2016-12-08] MEDS: metroNIDAZOLE Inj 500 MG in IV Premix 1 EACH IV SCH ×2 (09:35→21:23)
[2016-12-08] MEDS: levoFLOXacin Inj 500 MG in IV Premix 1 EACH IV SCH (10:26)
--- NOTE | 2016-12-08 14:26 | PCM.PNMED ---
Subjective Date of Service Dec 08, 2016 Subjective Patient was seen and examined at bedside today. Patient still complains of abdominal pain and discomfort. Patient also still complains of right lower extremity pain. Patient denies any nausea or vomiting. Patient still reports blood in the stools with 1 episode today. Overnight: Patient had an episode of bloody stools about 5 mL sample was sent for culture. Exam Vital Signs Vital Sign - Last Date Time Temp Pulse Resp B/P Pulse Ox O2 Delivery O2 Flow Rate FiO2 12/08/16 10:49 36.7 81 19 169/94 95 Room Air Intake and Output 12/07/16 12/07/16 12/08/16 Cumulative From/Thru 14:59 22:59 06:59 12/06/16 13:21 - 12/08/16 06:36 Intake Total 2000 ml 2669 ml 1528 ml 7197 ml Output Total 1700 ml 900 ml 1000 ml 3600 ml Balance 300 ml 1769 ml 528 ml 3597 ml Intake Oral 2000 ml 150 ml 300 ml 2450 ml IV Total 2519 ml 1228 ml 4747 ml Output Urine Total 1700 ml 900 ml 1000 ml 3600 ml # Bowel Movements 3 0 3 Exam Physical Exam: GEN: Patient was awake, alert, responding appropriately to questions HEENT: Pupils equal round and reactive to light, extraocular eye muscles intact , Neck soft supple, trachea midline, nomocephalic/atraumatic CV: +S1/S2, regular rate and rhythm, no murmurs auscultated Respiratory: CTAB, no wheezes, rales, rhonchi GI: +bowel sounds x4, soft, compressible, positive left upper quadrant tenderness to palpation EXT: no clubbing, cyanosis, edema Neuro: Cranial nerves II-XII grossly intact Psych: mood and affect were anxious IVs and Medications Medications Reviewed: Medications were reviewed in detail Lab and Diagnostics Result Diagram: 12/08/16 0500 12/08/16 0500 X-Rays, CTs and MRIs PROCEDURE: CT ABDOMEN AND PELVIS WITHOUT CONTRAST ([id number]) INDICATIONS: rlq abd tenderness TECHNIQUE: After the administration of oral contrast, 5 mm thick sections acquired from the diaphragms to the symphysis. 5 mm coronal and sagittal reformats were performed. For radiation dose reduction, the following was used: automated exposure control, adjustment of mA and/or kV according to patient size. COMPARISON: None. FINDINGS: Image quality: Excellent. ABDOMEN: Lung bases: Lung bases are clear. Heart size is normal. There is mild basilar atelectasis. No pleural effusion or pneumothorax. Solid organs: The liver is diffusely hypodense suggesting hepatic steatosis. The spleen demonstrates normal size. Gallbladder is unremarkable. Pancreas is normal in size. No adrenal nodules. Both kidneys are normal in size, without hydronephrosis or nephrolithiasis. Peritoneum and bowel: The stomach and small bowel demonstrate normal caliber and wall thickness. Patient is likely status post right hemicolectomy. The ascending and transverse colon demonstrate normal caliber and wall thickness. There is circumferential wall thickening of the descending and sigmoid colon. There is mild pericolonic fat stranding. No definite colonic diverticular outpouchings to suggest diverticulitis. No free fluid or pneumoperitoneum. Nodes and vessels: No retroperitoneal or mesenteric adenopathy by size criteria. Aorta and inferior vena cava are normal in size. Miscellaneous: No ventral hernias. PELVIS: Genitourinary: Bladder wall thickness is normal. The uterus is surgically absent. Miscellaneous: No inguinal hernias or adenopathy. Bones: No suspicious bony lesions. Severe degenerative change throughout the lumbar spine. No vertebral body compression fractures. IMPRESSION: 1. Descending and sigmoid colitis. Ischemic, infectious, and inflammatory etiologies could all be considered in the differential. No perforation or abscess. This finding was discussed with Dr. Otero at 8:51 PM on 12/06/16. Dictated by: Bell Pagan M.D. on 12/06/2016 at 16:44 12-lead ECG Pending Assessment & Plan 66-year-old lady with past medical history of diabetes on insulin, hypertension , obesity, chronic low back pain, peripheral neuropathy presented to the emergency room due to bloody diarrhea of one day Acute descending colitis,poa -Likely infectious given the elevated white count -Stool PCR negative -Continue Levaquin and Flagyl -C. difficile negative - Continue IV fluids -Continue nothing by mouth -CT consistent with descending colitis -Blood cx pending -GI consulted and currently following Right lower extremity pain status post fall yesterday prior to admission - AP pelvis and right lower extremity x-ray showed no acute fractures -Continue patient's gabapentin back to her home dose of 800 mg 3 times a day Metabolic acidosis, acute, poa -Initial anion gap 19, lactic negative current anion gap is trending downward currently 14 -Less likely early DKA -Continue IV fluids Suspected UTI -Preliminary urine culture suggests gram-negative rods - Continue Levaquin Diabetes, chronic -Hold patient's home medication and she is currently nothing by mouth NPH insulin 55 in the morning and 50 units at bedtime -Continue with Sliding-scale high correction Hypertension -Currently controlled uncontrol -Continue atenolol - Restart lisinopril Lower GI bleeding due to colitis -GI following HLD currently stable -Continue home statin Peripheral neuropathy, -Continue home dose of gabapentin 800 mg 3 times a day No dvt ppx due to gi bleed Full code Disposition: Patient continues to be on antibiotics however she is still having lower GI bleeding. Patient has been reluctant to have a GI scope however at this time it seems that is more clinically indicated and the patient may be more willing to have GI performed endoscopy/colonoscopy. We will continue to monitor and discuss with GI. Resuscitation Status: CPR: Attempt Resuscitation Ashlee Greene DO Dec 08, 2016 12:51
--- NOTE | 2016-12-08 17:07 | NUR ---
Activity Patient ambulates in room to BR independently. HANDY MAN used to control pain. Patient denies nausea at this time. Patient awaiting GI for update. Call light and tray table within reach. Will continue to monitor patient hourly.
--- NOTE | 2016-12-08 19:12 | PCM.PNMED ---
Subjective Date of Service Dec 08, 2016 Subjective She is not complaining of any abdominal pain. The nurse informing she had 2 bowel movements. Mostly liquids. There was a small tinge of blood on each bowel movement; this is according to the nursing staff. Exam Vital Signs Vital Sign - Last Date Time Temp Pulse Resp B/P Pulse Ox O2 Delivery O2 Flow Rate FiO2 12/08/16 16:00 18 95 12/08/16 14:39 67 146/75 12/08/16 10:49 36.7 Room Air Intake and Output 12/07/16 12/07/16 12/08/16 Cumulative From/Thru 15:00 23:00 07:00 12/06/16 13:21 - 12/08/16 06:36 Intake Total 2000 ml 2669 ml 1528 ml 7197 ml Output Total 1700 ml 900 ml 1000 ml 3600 ml Balance 300 ml 1769 ml 528 ml 3597 ml Intake Oral 2000 ml 150 ml 300 ml 2450 ml IV Total 2519 ml 1228 ml 4747 ml Output Urine Total 1700 ml 900 ml 1000 ml 3600 ml # Bowel Movements 3 0 3 Exam The patient is alert and oriented mild distress due to leg pain and back pain. Head and neck no icterus Lungs clear Cardiovascular regular rate and rhythm normal S1-S2 Abdomen soft mildly distended with normoactive bowel sounds. His left lower quadrant tenderness. However this is improvement. The tenderness was noted on deep palpation which is improvement from yesterday. Mild rebound. Lab and Diagnostics Result Diagram: 12/08/16 0500 12/08/16 0500 X-Rays, CTs and MRIs PROCEDURE: CT ABDOMEN AND PELVIS WITHOUT CONTRAST ([id number]) INDICATIONS: rlq abd tenderness TECHNIQUE: After the administration of oral contrast, 5 mm thick sections acquired from the diaphragms to the symphysis. 5 mm coronal and sagittal reformats were performed. For radiation dose reduction, the following was used: automated exposure control, adjustment of mA and/or kV according to patient size. COMPARISON: None. FINDINGS: Image quality: Excellent. ABDOMEN: Lung bases: Lung bases are clear. Heart size is normal. There is mild basilar atelectasis. No pleural effusion or pneumothorax. Solid organs: The liver is diffusely hypodense suggesting hepatic steatosis. The spleen demonstrates normal size. Gallbladder is unremarkable. Pancreas is normal in size. No adrenal nodules. Both kidneys are normal in size, without hydronephrosis or nephrolithiasis. Peritoneum and bowel: The stomach and small bowel demonstrate normal caliber and wall thickness. Patient is likely status post right hemicolectomy. The ascending and transverse colon demonstrate normal caliber and wall thickness. There is circumferential wall thickening of the descending and sigmoid colon. There is mild pericolonic fat stranding. No definite colonic diverticular outpouchings to suggest diverticulitis. No free fluid or pneumoperitoneum. Nodes and vessels: No retroperitoneal or mesenteric adenopathy by size criteria. Aorta and inferior vena cava are normal in size. Miscellaneous: No ventral hernias. PELVIS: Genitourinary: Bladder wall thickness is normal. The uterus is surgically absent. Miscellaneous: No inguinal hernias or adenopathy. Bones: No suspicious bony lesions. Severe degenerative change throughout the lumbar spine. No vertebral body compression fractures. IMPRESSION: 1. Descending and sigmoid colitis. Ischemic, infectious, and inflammatory etiologies could all be considered in the differential. No perforation or abscess. This finding was discussed with Dr. Otero at 8:51 PM on 12/06/16. Dictated by: Bell Pagan M.D. on 12/06/2016 at 16:44 12-lead ECG Pending Assessment & Plan 66-year-old lady with past medical history of diabetes on insulin, hypertension , obesity, chronic low back pain, peripheral neuropathy presented to the emergency room due to bloody diarrhea of one day Most likely ischemic colitis resolving with IV fluids and antibiotics. Continue antibiotics. If the abdominal pain continues to improve and she feels hungry, would start clear liquids tomorrow morning. We will follow. Resuscitation Status: CPR: Attempt Resuscitation Ulises Dewitt MD Dec 08, 2016 19:12
[2016-12-09] VITALS (14 sets, daily range): BP systolic 146–184; BP diastolic 77–88; PULSE 68–79; RESP 14–24; O2SAT 92–96
[2016-12-09] MEDS: HYDROmorphone PCA 0.2 mg/mL 30 mL Inj IV PRN ×2 (04:32→18:15)
[2016-12-09 05:37] LABS: Mean Corpuscular Hemoglobin 30.1 pg (27.0-35.0)
--- NOTE | 2016-12-09 06:19 | NUR ---
Pain Pt pain not very well controlled. teaching done on use of INTERLOCKING PAVEMENT INSTALLER. Pt stated she doesn't think it helps with her leg pain much.
[2016-12-09] MEDS: Insulin LISPRO 300 Unit/3 mL Inj SUBQ SCH ×4 (08:00→22:00)
[2016-12-09] MEDS: Insulin Human NPH 100 Unit/mL 3 mL Inj SUBQ SCH ×2 (08:30→22:57)
[2016-12-09] MEDS: metroNIDAZOLE Inj 500 MG in IV Premix 1 EACH IV SCH ×2 (09:09→21:42)
[2016-12-09] MEDS: 0.9% Sodium Chloride 1,000 ML IV SCH ×3 (12:17→23:04)
[2016-12-09] MEDS: levoFLOXacin Inj 500 MG in IV Premix 1 EACH IV SCH (12:18)
--- NOTE | 2016-12-09 14:26 | PCM.PNMED ---
Subjective Date of Service Dec 09, 2016 Subjective Patient is complaining of back pain. No significant abdominal pain. Had no bowel movement this morning or last night. Exam Vital Signs Vital Sign - Last Date Time Temp Pulse Resp B/P Pulse Ox O2 Delivery O2 Flow Rate FiO2 12/09/16 13:21 36.6 69 16 146/82 92 Room Air Intake and Output 12/08/16 12/08/16 12/09/16 Cumulative From/Thru 15:00 23:00 07:00 12/06/16 13:21 - 12/09/16 06:27 Intake Total 1388 ml 1245 ml 9830 ml Output Total 1000 ml 2400 ml 7000 ml Balance 388 ml -1155 ml 2830 ml Intake Oral 0 ml 0 ml 2450 ml IV Total 1388 ml 1245 ml 7380 ml Output Urine Total 1000 ml 2400 ml 7000 ml # Bowel Movements 3 Exam Patient is alert and oriented comfortable Head and neck no icterus Lungs clear Cardiovascular regular rate and rhythm normal S1-S2 Abdomen soft decreased distention decreased tenderness on the left side and no rebound. Normoactive bowel sounds Extremities no pitting edema ankles Skin showed no jaundice Lab and Diagnostics Result Diagram: 12/09/16 0510 12/09/16 0510 X-Rays, CTs and MRIs PROCEDURE: CT ABDOMEN AND PELVIS WITHOUT CONTRAST ([id number]) INDICATIONS: rlq abd tenderness TECHNIQUE: After the administration of oral contrast, 5 mm thick sections acquired from the diaphragms to the symphysis. 5 mm coronal and sagittal reformats were performed. For radiation dose reduction, the following was used: automated exposure control, adjustment of mA and/or kV according to patient size. COMPARISON: None. FINDINGS: Image quality: Excellent. ABDOMEN: Lung bases: Lung bases are clear. Heart size is normal. There is mild basilar atelectasis. No pleural effusion or pneumothorax. Solid organs: The liver is diffusely hypodense suggesting hepatic steatosis. The spleen demonstrates normal size. Gallbladder is unremarkable. Pancreas is normal in size. No adrenal nodules. Both kidneys are normal in size, without hydronephrosis or nephrolithiasis. Peritoneum and bowel: The stomach and small bowel demonstrate normal caliber and wall thickness. Patient is likely status post right hemicolectomy. The ascending and transverse colon demonstrate normal caliber and wall thickness. There is circumferential wall thickening of the descending and sigmoid colon. There is mild pericolonic fat stranding. No definite colonic diverticular outpouchings to suggest diverticulitis. No free fluid or pneumoperitoneum. Nodes and vessels: No retroperitoneal or mesenteric adenopathy by size criteria. Aorta and inferior vena cava are normal in size. Miscellaneous: No ventral hernias. PELVIS: Genitourinary: Bladder wall thickness is normal. The uterus is surgically absent. Miscellaneous: No inguinal hernias or adenopathy. Bones: No suspicious bony lesions. Severe degenerative change throughout the lumbar spine. No vertebral body compression fractures. IMPRESSION: 1. Descending and sigmoid colitis. Ischemic, infectious, and inflammatory etiologies could all be considered in the differential. No perforation or abscess. This finding was discussed with Dr. Otero at 8:51 PM on 12/06/16. Dictated by: Bell Pagan M.D. on 12/06/2016 at 16:44 12-lead ECG Pending Assessment & Plan 66-year-old lady with past medical history of diabetes on insulin, hypertension , obesity, chronic low back pain, peripheral neuropathy presented to the emergency room due to bloody diarrhea of one day Most likely ischemic colitis resolving with IV fluids and antibiotics. Continue antibiotics. Today she is doing better in terms of her colitis. She feels little hungry this morning. She wants to eat. Abdominal tenderness is less significant and I do not sense rebound on exam. Also her white blood count has now normalized. Clear liquid diet. If she tolerates, would advance the diet to soft diet starting tomorrow. As an outpatient, I would continue the antibiotics for another 3 or 4 days. VTE Mechanical Devices: Intermittant Pneumatic CD Resuscitation Status: CPR: Attempt Resuscitation Ulises Dewitt MD Dec 09, 2016 14:26
--- NOTE | 2016-12-09 15:03 | NUR ---
Social Work - Readiness for Discharge: Data:EMR Reviewed. Pt is on day 3 of hospitalization for Colitis as per H&P. Pt is medically stable for discharge. PT has seen pt and recommended HH. SW reviewed HH options and Pt declined HH. Pt stated is considering going home with daughter Yoli. Pt's family to provide transport. No anticipated discharge needs. SW will continue to follow if needs arise. Assessment:Pt who is independent at baseline. Plan:Pt to discharge home when medically stable via POV. HH recommendation declined by patient. SW will continue to follow if needs arise. SYLVIE Bustos
--- NOTE | 2016-12-09 16:55 | PCM.PNMED ---
Subjective Date of Service Dec 09, 2016 Subjective Patient was seen and examined at bedside today. Patient denies any chest pain, shortness of breath, nausea, vomiting, diarrhea. Patient states that her abdominal pain has improved significantly as well as her GI bleeding. The patient still complains of right lower extremity pain and chronic back pain. Overnight events: None Exam Vital Signs Vital Sign - Last Date Time Temp Pulse Resp B/P Pulse Ox O2 Delivery O2 Flow Rate FiO2 12/09/16 13:21 36.6 69 16 146/82 92 Room Air Intake and Output 12/08/16 12/08/16 12/09/16 Cumulative From/Thru 15:00 23:00 07:00 12/06/16 13:21 - 12/09/16 06:27 Intake Total 1388 ml 1245 ml 9830 ml Output Total 1000 ml 2400 ml 7000 ml Balance 388 ml -1155 ml 2830 ml Intake Oral 0 ml 0 ml 2450 ml IV Total 1388 ml 1245 ml 7380 ml Output Urine Total 1000 ml 2400 ml 7000 ml # Bowel Movements 3 Exam Physical Exam: GEN: Patient was awake, alert, responding appropriately to questions HEENT: Pupils equal round and reactive to light, extraocular eye muscles intact , Neck soft supple, trachea midline, nomocephalic/atraumatic CV: +S1/S2, regular rate and rhythm, no murmurs auscultated Respiratory: CTAB, no wheezes, rales, rhonchi GI: +bowel sounds x4, soft, compressible, nontender to palpation EXT: no clubbing, cyanosis, edema Neuro: Cranial nerves II-XII grossly intact Psych: mood and affect were appropriate IVs and Medications Medications Reviewed: Medications were reviewed in detail Lab and Diagnostics Result Diagram: 12/09/16 0510 12/09/16 0510 X-Rays, CTs and MRIs PROCEDURE: CT ABDOMEN AND PELVIS WITHOUT CONTRAST ([id number]) INDICATIONS: rlq abd tenderness TECHNIQUE: After the administration of oral contrast, 5 mm thick sections acquired from the diaphragms to the symphysis. 5 mm coronal and sagittal reformats were performed. For radiation dose reduction, the following was used: automated exposure control, adjustment of mA and/or kV according to patient size. COMPARISON: None. FINDINGS: Image quality: Excellent. ABDOMEN: Lung bases: Lung bases are clear. Heart size is normal. There is mild basilar atelectasis. No pleural effusion or pneumothorax. Solid organs: The liver is diffusely hypodense suggesting hepatic steatosis. The spleen demonstrates normal size. Gallbladder is unremarkable. Pancreas is normal in size. No adrenal nodules. Both kidneys are normal in size, without hydronephrosis or nephrolithiasis. Peritoneum and bowel: The stomach and small bowel demonstrate normal caliber and wall thickness. Patient is likely status post right hemicolectomy. The ascending and transverse colon demonstrate normal caliber and wall thickness. There is circumferential wall thickening of the descending and sigmoid colon. There is mild pericolonic fat stranding. No definite colonic diverticular outpouchings to suggest diverticulitis. No free fluid or pneumoperitoneum. Nodes and vessels: No retroperitoneal or mesenteric adenopathy by size criteria. Aorta and inferior vena cava are normal in size. Miscellaneous: No ventral hernias. PELVIS: Genitourinary: Bladder wall thickness is normal. The uterus is surgically absent. Miscellaneous: No inguinal hernias or adenopathy. Bones: No suspicious bony lesions. Severe degenerative change throughout the lumbar spine. No vertebral body compression fractures. IMPRESSION: 1. Descending and sigmoid colitis. Ischemic, infectious, and inflammatory etiologies could all be considered in the differential. No perforation or abscess. This finding was discussed with Dr. Otero at 8:51 PM on 12/06/16. Dictated by: Bell Pagan M.D. on 12/06/2016 at 16:44 12-lead ECG Pending Assessment & Plan 66-year-old lady with past medical history of diabetes on insulin, hypertension , obesity, chronic low back pain, peripheral neuropathy presented to the emergency room due to bloody diarrhea of one day Acute descending colitis,poa -Likely infectious given the elevated white count -Stool PCR negative -Continue Levaquin and Flagyl -C. difficile negative - Continue IV fluids -Advance to clear liquid diet -CT consistent with descending colitis -Blood cx pending -GI consulted and currently following Right lower extremity pain status post fall yesterday prior to admission - AP pelvis and right lower extremity x-ray showed no acute fractures -Continue patient's gabapentin back to her home dose of 800 mg 3 times a day -Start naproxen 500 mg twice a day Metabolic acidosis, acute, poa -Initial anion gap 19, lactic negative current anion gap is trending downward currently 14 -Less likely early DKA -Continue IV fluids Suspected UTI -Preliminary urine culture suggests gram-negative rods - Continue Levaquin Diabetes, chronic -Restart patient's home medications Hold patient's home medication and she is currently nothing by mouth NPH insulin 55 in the morning and 50 units at bedtime -Continue with Sliding-scale high correction Hypertension -Currently controlled uncontrol -Continue atenolol - Restart lisinopril Lower GI bleeding due to colitis -GI following HLD currently stable -Continue home statin Peripheral neuropathy, -Continue home dose of gabapentin 800 mg 3 times a day No dvt ppx due to gi bleed Full code Disposition: We will continue the patient on antibiotic therapy at this time. GI has seen the patient did feels that her symptoms are well enough for her to start eating again. Patient will be advanced to clear liquid diet and will continue to follow the patient. VTE Mechanical Devices: Intermittant Pneumatic CD Resuscitation Status: CPR: Attempt Resuscitation Ashlee Greene DO Dec 09, 2016 16:55
--- NOTE | 2016-12-09 18:47 | NUR ---
Diet / Ambulation Slowly increasing more PO liquids. C/o cramping at times and frequently voids. Ambulates independently with steady gait to bathroom. Per MASTIC FLOOR LAYER pt continues to have small amount of blood in BMs. Per pt this is much decreased when compared to previous times. Will continue to monitor.
[2016-12-10] VITALS (7 sets, daily range): BP systolic 164–190; BP diastolic 85–133; PULSE 65–105; RESP 14–24; O2SAT 95–98
--- NOTE | 2016-12-10 04:27 | NUR ---
PAIN Patient complained of continual pain in legs and lower back. Given bolus of GROUP CHIEF OPERATOR and Soma. Was able to sleep for a bit after this. Up and down in room frequently due to discomfort. Sat in chair a large portion of night.
[2016-12-10] MEDS: HYDROmorphone PCA 0.2 mg/mL 30 mL Inj IV PRN (04:34)
[2016-12-10] MEDS: metroNIDAZOLE Inj 500 MG in IV Premix 1 EACH IV SCH (08:27)
[2016-12-10] MEDS: Insulin LISPRO 300 Unit/3 mL Inj SUBQ SCH ×2 (08:31→12:06)
[2016-12-10] MEDS: Insulin Human NPH 100 Unit/mL 3 mL Inj SUBQ SCH (08:34)
--- NOTE | 2016-12-10 08:45 | NUR ---
DOG LICENSER DC / pain mentation DOG LICENSER DC'd per MD Greene. Pt concerns as kim is not controlled. Pt states that nothing helps. Everything offered pt declines. Pt now tearful and stating she will just leave but wants a Rx written first. Advised pt that her MD in charge of her back pain must refill Rx's for her back pain. We can not do this. Per pt she is ready to DC. Refused breakfast. MD to DC. Care continues
[2016-12-10] MEDS: levoFLOXacin Inj 500 MG in IV Premix 1 EACH IV SCH (09:05)
--- NOTE | 2016-12-10 09:15 | PCM.PNMED ---
Subjective Date of Service Dec 10, 2016 Subjective Patient complaining of back pain and leg pain. This morning the patient noted pain on the right pelvic area. She said it happens with the back pain. Exam Vital Signs Vital Sign - Last Date Time Temp Pulse Resp B/P Pulse Ox O2 Delivery O2 Flow Rate FiO2 12/10/16 06:21 36.7 68 20 164/85 97 Room Air Intake and Output 12/09/16 12/09/16 12/10/16 Cumulative From/Thru 15:00 23:00 07:00 12/06/16 13:21 - 12/10/16 06:34 Intake Total 2765 ml 984 ml 64310 ml Output Total 2000 ml 0 ml 9000 ml Balance 765 ml 984 ml 4579 ml Intake Oral 1590 ml 4040 ml IV Total 1175 ml 984 ml 9539 ml Output Urine Total 2000 ml 0 ml 9000 ml # Bowel Movements 1 4 Exam Patient is alert oriented comfortable. Head and neck no icterus Lungs clear Cardiovascular regular rate and rhythm normal S1-S2 Abdomen soft left lower quadrant minimal tenderness even with deep palpation no guarding rebound or firmness nondistended with normoactive bowel sounds. On examination, she had no right-sided or right lower quadrant tenderness even with deep palpation. Extremities no edema. Skin shows no jaundice. Lab and Diagnostics Result Diagram: 12/09/16 0510 12/09/16 0510 X-Rays, CTs and MRIs PROCEDURE: CT ABDOMEN AND PELVIS WITHOUT CONTRAST ([id number]) INDICATIONS: rlq abd tenderness TECHNIQUE: After the administration of oral contrast, 5 mm thick sections acquired from the diaphragms to the symphysis. 5 mm coronal and sagittal reformats were performed. For radiation dose reduction, the following was used: automated exposure control, adjustment of mA and/or kV according to patient size. COMPARISON: None. FINDINGS: Image quality: Excellent. ABDOMEN: Lung bases: Lung bases are clear. Heart size is normal. There is mild basilar atelectasis. No pleural effusion or pneumothorax. Solid organs: The liver is diffusely hypodense suggesting hepatic steatosis. The spleen demonstrates normal size. Gallbladder is unremarkable. Pancreas is normal in size. No adrenal nodules. Both kidneys are normal in size, without hydronephrosis or nephrolithiasis. Peritoneum and bowel: The stomach and small bowel demonstrate normal caliber and wall thickness. Patient is likely status post right hemicolectomy. The ascending and transverse colon demonstrate normal caliber and wall thickness. There is circumferential wall thickening of the descending and sigmoid colon. There is mild pericolonic fat stranding. No definite colonic diverticular outpouchings to suggest diverticulitis. No free fluid or pneumoperitoneum. Nodes and vessels: No retroperitoneal or mesenteric adenopathy by size criteria. Aorta and inferior vena cava are normal in size. Miscellaneous: No ventral hernias. PELVIS: Genitourinary: Bladder wall thickness is normal. The uterus is surgically absent. Miscellaneous: No inguinal hernias or adenopathy. Bones: No suspicious bony lesions. Severe degenerative change throughout the lumbar spine. No vertebral body compression fractures. IMPRESSION: 1. Descending and sigmoid colitis. Ischemic, infectious, and inflammatory etiologies could all be considered in the differential. No perforation or abscess. This finding was discussed with Dr. Otero at 8:51 PM on 12/06/16. Dictated by: Bell Pagan M.D. on 12/06/2016 at 16:44 12-lead ECG Pending Assessment & Plan 66-year-old lady with past medical history of diabetes on insulin, hypertension , obesity, chronic low back pain, peripheral neuropathy presented to the emergency room due to bloody diarrhea of one day Most likely ischemic colitis resolving with IV fluids and antibiotics. Continue antibiotics. She had no bowel movement and tolerating current diet. She has again feels hungry this morning. On exam, abdominal tenderness is minimal. She complained of right pelvic pain however on exam there was no tenderness. She also said when I pushed, her back hurt. Also her white blood count has now normalized. Please have her be on low-fat and low protein diet for the next 2 weeks. As an outpatient, I would continue the by mouth antibiotics for another 3 or 4 days. Patient to follow up in the GI clinic in about one month. Finally, when I pushed on her right pelvis, she said her back hurt. This may be a referred pain from the back. Could she have compression? Consider MRI of the back. I will defer this to the primary hospitalist service. If she starts having more abdominal pain worsening diarrhea, please Reconsult. VTE Mechanical Devices: Intermittant Pneumatic CD Resuscitation Status: CPR: Attempt Resuscitation Ulises Dewitt MD Dec 10, 2016 09:15
[2016-12-10] MEDS: HYDROcodone-APAP 10-325 mg PO PRN (10:41)
[2016-12-10] MEDS ORDERED: HYDR-3740 PO (11:44)
[2016-12-10] MEDS ORDERED: GABA400C PO (11:44)
[2016-12-10] MEDS ORDERED: MELO-259 PO (11:44)
--- NOTE | 2016-12-10 11:46 | NUR ---
Social Work-discharge: Data:EMR Reviewed. Pt is on day 4 of hospitalization for colitis per H&P. Pt is medically stable for discharge. PT has cleared pt for home with HH Services. SW followed up with pt at bedside, SW role explained. Pt is declining any HH services at this time. Pt states her sister will provide transport home today. No discharge needs identified. All updated and agreeable to plan. Assessment:Pt who is independent at baseline. Plan:Pt to discharge home today via POV. No discharge needs identified. All updated and agreeable to plan. SYLVIE Magana
--- NOTE | 2016-12-10 11:49 | PCM.DIMED ---
Discharge Instructions Date of Service Dec 10, 2016 Dates of Hospitalization Dec 06, 2016 at 17:50 Discharge Diagnosis Discharge Diagnosis Acute descending colitis Right lower extremity pain secondary to chronic low back pain UTI Diabetes (chronic and stable) Hypertension Lower GI bleed secondary to colitis (resolved) Hyperlipidemia (currently stable) Peripheral neuropathy Medication Instructions Antibiotics have been prescribed you for your colitis please continue to take the antibiotics until complete Diet Diabetic Activity No restrictions (as tolerated) Call your provider Fever or Chills, Shortness of breath, Bleeding, Vomitting, Excessive diarrhea Patient Instructions Follow-up plan Patient should follow-up with her pain management doctor for epidural injections. Follow-up Provider: Crystal Todd DO Follow-up with PCP in: 1 week (if an appointment has not been made please call to schedule an appointment) Follow-up in: 1 week (please contact the pain management doctor for further management of your chronic pain) Ashlee Greene DO Dec 10, 2016 11:49
[2016-12-10] MEDS ORDERED: LEVO750T9 PO (11:51)
[2016-12-10] MEDS ORDERED: METR500T19 PO (11:51)
--- NOTE | 2016-12-10 11:56 | PCM.DC.MED ---
Discharge Summary Date of Service Dec 10, 2016 Dates of Hospitalization Date of Hospital Admission Dec 06, 2016 at 17:50 Date of Discharge: Dec 10, 2016 Providers: Admitting Physician: August Doherty MD Primary Care Physician: Crystal Todd DO Attending Physician: August Doherty MD Diagnosis at Time of Discharge Diagnosis at Time of Discharge Acute descending colitis Right lower extremity pain secondary to chronic low back pain UTI Diabetes (chronic and stable) Hypertension Lower GI bleed secondary to colitis (resolved) Hyperlipidemia (currently stable) Peripheral neuropathy Procedures XRay, CTs & MRIs PROCEDURE: CT ABDOMEN AND PELVIS WITHOUT CONTRAST ([id number]) INDICATIONS: rlq abd tenderness TECHNIQUE: After the administration of oral contrast, 5 mm thick sections acquired from the diaphragms to the symphysis. 5 mm coronal and sagittal reformats were performed. For radiation dose reduction, the following was used: automated exposure control, adjustment of mA and/or kV according to patient size. COMPARISON: None. FINDINGS: Image quality: Excellent. ABDOMEN: Lung bases: Lung bases are clear. Heart size is normal. There is mild basilar atelectasis. No pleural effusion or pneumothorax. Solid organs: The liver is diffusely hypodense suggesting hepatic steatosis. The spleen demonstrates normal size. Gallbladder is unremarkable. Pancreas is normal in size. No adrenal nodules. Both kidneys are normal in size, without hydronephrosis or nephrolithiasis. Peritoneum and bowel: The stomach and small bowel demonstrate normal caliber and wall thickness. Patient is likely status post right hemicolectomy. The ascending and transverse colon demonstrate normal caliber and wall thickness. There is circumferential wall thickening of the descending and sigmoid colon. There is mild pericolonic fat stranding. No definite colonic diverticular outpouchings to suggest diverticulitis. No free fluid or pneumoperitoneum. Nodes and vessels: No retroperitoneal or mesenteric adenopathy by size criteria. Aorta and inferior vena cava are normal in size. Miscellaneous: No ventral hernias. PELVIS: Genitourinary: Bladder wall thickness is normal. The uterus is surgically absent. Miscellaneous: No inguinal hernias or adenopathy. Bones: No suspicious bony lesions. Severe degenerative change throughout the lumbar spine. No vertebral body compression fractures. IMPRESSION: 1. Descending and sigmoid colitis. Ischemic, infectious, and inflammatory etiologies could all be considered in the differential. No perforation or abscess. This finding was discussed with Dr. Otero at 8:51 PM on 12/06/16. Dictated by: Bell Pagan M.D. on 12/06/2016 at 16:44 ECG 12 Lead Pending Brief History 66-year-old lady with past medical history of diabetes on insulin, hypertension , obesity, chronic low back pain, peripheral neuropathy presented to the emergency room due to bloody diarrhea of one day. She developed an episode of explosive nonbloody diarrhea last night at 10 pm which was followed by frequent small bloody diarrhea episodes. She also has diffuse abdominal pain, dull aching which is worse than her chronic pain. She has nausea but no vomiting. Denies fever. She has mild chronic abdominal and low back pain. She had underwent workup for chronic abdominal pain and constipation which is unrevealing except colon polyps. She had a follow-up colonoscopy 4 weeks ago which revealed only polyps. Denies history of diarrhea. Denies recent history of antibiotic use. Denies history of atrial fibrillation. She has history of gastric bypass surgery in the 70s for obesity which was complicated by intussusception requiring exploratory laparotomy. ED course: HR 105, BP 149/70, afebrile, saturation 97% on room air. WBC 14, sodium 134, bicarbonate 17, anion gap 19, urine ketones positive, pyuria, lactate 1.7, creatinine 0.59, glucose 240 CT abdomen shows descending colitis. Flagyl and Levaquin started. 2 L of normal saline given. Admission requested for colitis. Hospital Course 66-year-old lady with past medical history of diabetes on insulin, hypertension , obesity, chronic low back pain, peripheral neuropathy presented to the emergency room due to bloody diarrhea of one day. The patient was seen for a lower GI bleed secondary to colitis. The patient opted not to have a colonoscopy but preferred to try antibiotics and see if this resolved her issue first. The patient currently had no longer has lower GI bleeding in her abdominal symptoms have resolved. Patient is currently tolerating her diet. The patient now only complains of right lower extremity pain and low back pain secondary to her chronic back pain. The patient has been instructed to follow-up with her pain clinic as she has been scheduled for an epidural injection into the low back facet joints on December 16. After discussing the case with GI today Dr. Dewitt he has stated that the patient's symptoms are completely resolved and that she is stable to be discharged home. The patient is being discharged home in stable condition. She has been given prescriptions for [place] 10 and Mobic along with Soma in order to help with the pain. The patient has been prescribed metronidazole and Levaquin to finish her antibiotic course. Please see below for full hospital course: Acute descending colitis,poa -Likely infectious given the elevated white count -Stool PCR negative -Continue Levaquin and Flagyl -C. difficile negative - Continue IV fluids -Advance to clear liquid diet -CT consistent with descending colitis -Blood cx pending -GI consulted and currently following Right lower extremity pain status post fall yesterday prior to admission - AP pelvis and right lower extremity x-ray showed no acute fractures -Continue patient's gabapentin back to her home dose of 800 mg 3 times a day -Start naproxen 500 mg twice a day Metabolic acidosis, acute, poa -Initial anion gap 19, lactic negative current anion gap is trending downward currently 14 -Less likely early DKA -Continue IV fluids Suspected UTI -Preliminary urine culture suggests gram-negative rods - Continue Levaquin Diabetes, chronic -Restart patient's home medications Hold patient's home medication and she is currently nothing by mouth NPH insulin 55 in the morning and 50 units at bedtime -Continue with Sliding-scale high correction Hypertension -Currently controlled uncontrol -Continue atenolol - Restart lisinopril Lower GI bleeding due to colitis -GI following HLD currently stable -Continue home statin Peripheral neuropathy, -Continue home dose of gabapentin 800 mg 3 times a day No dvt ppx due to gi bleed Full code Exam Vital Signs (Last) Date Time Temp Pulse Resp B/P Pulse Ox O2 Delivery O2 Flow Rate FiO2 12/10/16 10:50 71 12/10/16 09:15 36.7 24 190/133 98 Room Air Exam Physical Exam: GEN: Patient was awake, alert, responding appropriately to questions HEENT: Pupils equal round and reactive to light, extraocular eye muscles intact , Neck soft supple, trachea midline, nomocephalic/atraumatic CV: +S1/S2, regular rate and rhythm, no murmurs auscultated Respiratory: CTAB, no wheezes, rales, rhonchi GI: +bowel sounds x4, soft, compressible, nontender to palpation EXT: no clubbing, cyanosis, edema Neuro: Cranial nerves II-XII grossly intact Psych: mood and affect were appropriate Test 12/06/16 14:00 12/06/16 14:05 12/07/16 08:30 12/08/16 05:00 Urine Color Yellow (YELLOW) Urine Appearance Clear (CLEAR,HAZY) Urine pH 5.5 (5.0-8.0) Urine Specific [place] 1.015 (1.003-1.035) Urine Protein Negativemg/dL (NEG,TRACE) Urine Glucose (UA) Negativemg/dL (NEGATIVE) Urine Ketones 40mg/dL (NEGATIVE) Urine Occult Blood Large (NEGATIVE) Urine Nitrite Positive (NEGATIVE) Urine Bilirubin Negative (NEGATIVE) Urine Urobilinogen Normalmg/dL (NORMAL) Urine Leukocyte Esterase Small (NEGATIVE) Urine RBC 11-50/hpf (0-2) Urine WBC 6-10/hpf (0-5) Urine Epithelial Cells Moderate/hpf (NONE-MOD) Urine Crystals None seen (NONE SEEN) Urine Bacteria Many/hpf (NONE-FEW) Urine Hyaline Casts None/lpf (NONE) Urine Granular Casts None seen (NONE SEEN) Urine Waxy Casts None seen (NONE SEEN) Urine Red Blood Cell Casts None seen (NONE SEEN) Urine White Blood Cell Casts None seen (NONE SEEN) Urine Mucus None seen (None Seen) Urine Trichomonas None seen (NONE SEEN) Urine Yeast None (NONE SEEN) Urinalysis Comment None Urine Culture Reflexed Indicated Prothrombin Time 10.7sec (8.1-12.5) Prothromb Time International Ratio 1.00ratio Activated Partial Thromboplast Time 24.8sec (22.8-33.0) Lactic Acid Level 1.7mmol/L (0.4-2.0) Hold García Top Tube Received (Received) Ketones Positive (Negative) Magnesium Level 2.0mg/dL (1.6-2.6) Neutrophils (%) (Auto) 71.2% (40-74) Lymphocytes (%) (Auto) 20.9% (14-46) Monocytes (%) (Auto) 5.8% (4-12) Eosinophils (%) (Auto) 1.6% (0-5) Basophils (%) (Auto) 0.2% (0-3) Procalcitonin 0.19ng/mL (0.00-0.08) Test 4/18/17 05:10 White Blood Count 7.1th/mm3 (3.8-10.1) Red Blood Count 4.49mil/mm3 (3.90-5.20) Hemoglobin 13.5g/dL (12.0-15.6) Hematocrit 41.3% (35.0-46.0) Mean Corpuscular Volume 92.0fL (81-100) Mean Corpuscular Hemoglobin 30.1pg (27.0-35.0) Mean Corpuscular Hemoglobin Concent 32.7% (32.0-37.0) Red Cell Distribution Width 12.8% (12.3-15.4) Platelet Count 153bil/L (150-400) Sodium Level 139mEq/L (134-144) Potassium Level 4.2mEq/L (3.5-5.2) Chloride Level 102mEq/L (97-108) Carbon Dioxide Level 20mmol/L (18-29) Blood Urea Nitrogen 9mg/dL (8-27) Creatinine 0.49mg/dL (0.57-1.00) Estimat Glomerular Filtration Rate 180mL/min (>59) Glucose Level 199mg/dL (60-99) Calcium Level 8.4mg/dL (8.5-10.1) Total Bilirubin 0.5mg/dL (0.0-1.2) Aspartate Amino Transf (AST/SGOT) 17U/L (0-50) Alanine Aminotransferase (ALT/SGPT) 16U/L (0-32) Alkaline Phosphatase 140U/L (25-165) Total Protein 5.5g/dL (6.4-8.4) Albumin 3.1g/dL (3.4-5.0) Lipase 18U/L (13-60) Discharge Medications Discharge Medications Atenolol (Atenolol) 25 Mg Tablet 50 MG PO DAILY (Reported) Atorvastatin (Lipitor) 20 Mg Tablet 20 MG PO DAILY (Reported) Citalopram (Citalopram) 40 Mg Tablet 40 MG PO DAILY (Reported) Gabapentin (Neurontin) 400 Mg Capsule 800 MG PO TID Prescribed by: ROCKY VIRK DO Insulin Regular, Human (Novolin-R U100 Insulin Vial) 100 Unit/1 Ml Vial 0 SQ ONCE (Reported) Levofloxacin (Levaquin) 750 Mg Tablet 750 MG PO DAILY please start taking this medication tomorrow 12/11/16 as you have already had your dose for today 12/10/16. Prescribed by: ROCKY VIRK DO Lisinopril (Lisinopril) 10 Mg Tablet 10 MG PO DAILY (Reported) Meloxicam (Meloxicam) 7.5 Mg Tablet 15 MG PO DAILYWD Prescribed by: ROCKY VIRK DO Metronidazole (Metronidazole) 500 Mg Tablet 500 MG PO TID Prescribed by: ROCKY VIRK DO Mirtazapine (Mirtazapine) 30 Mg Tablet 30 MG PO HS (Reported) NPH, Human Insulin Isophane (Novolin-N U100 Insulin Vial) 100 Unit/1 Ml Vial 100 UNIT SUBQ ONCE (Reported) Oxybutynin Chloride (Oxybutynin Chloride) 5 Mg Tablet 10 MG PO DAILY (Reported) As needed Carisoprodol (Carisoprodol) 350 Mg Tablet 350 MG PO TID PRN PRN UNKNOWN ( Reported) Hydrocodone-Acetaminophen 10-325 mg (Hydrocodone-Acetaminophen 10-325 mg) 1 Each Tablet 1 TABLET PO Q6H PRN PRN For Pain Prescribed by: ROCKY VIRK DO Additional med instructions Antibiotics have been prescribed you for your colitis please continue to take the antibiotics until complete Followup Plan Follow-up plan Patient should follow-up with her pain management doctor for epidural injections. Discharge Diet: Diabetic Discharge Activity: No restrictions (as tolerated) Follow-up Provider: Crystal Todd DO Follow-up with PCP in: 1 week (if an appointment has not been made please call to schedule an appointment) Follow-up in: 1 week (please contact the pain management doctor for further management of your chronic pain) Time spent Greater than 35 minutes copies to: Crystal Todd Precious L DO Dec 10, 2016 11:56
[2016-12-10] MEDS ORDERED: SOMA350 PO (11:58)
[2016-12-10] MEDS: 0.9% Sodium Chloride 1,000 ML IV SCH (12:15)
--- NOTE | 2016-12-10 13:40 | NUR ---
DC Pt discharges to home with family. All instructions and prescriptions reviewed and understood by pt. Pt states she understands all instructions and medications changes. IV DC'd. Tele DC'd. All belongings in hand. Prescriptions in hand. Plan to have staff wheel pt out to front. Care discontinues
== END 2016-12-10 13:50 | disposition home or self-care (01) | DRG 392 ==
LOC: SED 13:18 → OSC 17:50
PROVIDERS: ADMIT Internal Medicine; ATTEND Internal Medicine
DX: K52.9 Noninfective gastroenteritis and colitis, unspecified (principal); Z68.42 Body mass index [BMI] 45.0-49.9, adult; N39.0 Urinary tract infection, site not specified; E87.2 Acidosis; E66.9 Obesity, unspecified; E78.5 Hyperlipidemia, unspecified; E11.9 Type 2 diabetes mellitus without complications; I10 Essential (primary) hypertension; G62.9 Polyneuropathy, unspecified; M54.16 Radiculopathy, lumbar region; Z87.891 Personal history of nicotine dependence; Z98.84 Bariatric surgery status